=== PATIENT | male | born 1965 | race Caucasian/White ===

== ENCOUNTER 2016-11-25 16:13 | Emergency (ER) | payer OTHER, MEDICARE ==
[~2016-11-25] VITALS: Ht 165.1 cm; Wt 81.6 kg
[~2016-11-25 16:13] MED LIST: LAMISIL AT30 GM PO
[2016-11-25] MEDS ORDERED: VITAMIN D250000 UNIT PO (17:13)
[2016-11-25] MEDS ORDERED: VITAMIN B-121000 MC3 PO (17:14)
[2016-11-25] MEDS ORDERED: LISINOPRIL2.5 M1 PO (17:14)
[2016-11-25] MEDS ORDERED: BENZTROPINE ME0.5 M1 PO (17:15)
[2016-11-25] MEDS ORDERED: ZIPRASIDONE HCL80 M1 PO (17:15)
[2016-11-25] MEDS ORDERED: METFORMIN HCL500 M4 PO (17:17)
[2016-11-25] MEDS ORDERED: HALOPERIDOL5 MG PO (17:18)
[2016-11-25] MEDS ORDERED: PAIN & FEVER325 M1 PO (17:23)
[2016-11-25] MEDS ORDERED: ADULT WAL-100 MG/5 M PO (17:23)
[2016-11-25] MEDS ORDERED: BACITRACIN28.4 GM TOP (17:24)
--- NOTE | 2016-11-25 17:54 | CT SCAN REPORT ---
EXAMINATION: CT HEAD WITHOUT CONTRAST CLINICAL INFORMATION: Status post unwitnessed fall. Scalp laceration. COMPARISON: None TECHNIQUE: Contiguous axial imaging was performed from the skull base to vertex without intravenous administration of contrast. DLP: 945 mGy-cm FINDINGS: There is no evidence of acute intracranial hemorrhage or territorial infarction. No abnormal mass effect or midline shift is seen. Thornton to white matter differentiation is well preserved. No extra-axial fluid collections are identified. The ventricles are normal in size. There is no abnormal attenuation within the brain parenchyma. A small laceration with skin clips and scalp hematoma in the left posterior parietal region is identified. The osseous structures appear unremarkable. Frontal sinuses are aplastic. The mastoid air cells and other visualized portions of the paranasal sinuses are well developed and patent. IMPRESSION: No acute intracranial pathology.
--- NOTE | 2016-11-25 17:59 | CT SCAN REPORT ---
EXAMINATION: CT CERVICAL SPINE WITHOUT CONTRAST CLINICAL INFORMATION: Scalp laceration status post unwitnessed fall. COMPARISON: None TECHNIQUE: Routine multidetector CT imaging through the cervical spine was performed. Sagittal and coronal reconstructed imaging is also provided. The inferior most aspect of the anterior T7 vertebra is not completely included. DLP: 945 mGy-cm FINDINGS: CERVICAL SPINE: There is anatomic alignment of the vertebral bodies and posterior elements. There is no acute fracture and there is no acute subluxation. The craniocervical and atlantoaxial articulations are normal. No significant appearing degenerative changes are seen. There is no high-grade canal or foraminal stenosis. There is mild loss of disc space height most notably at the C3/C4 level. There is no prevertebral soft tissue swelling. No significant soft tissue abnormality within the neck. Lung apices are not included. IMPRESSION: No acute osseous injury.
[2016-11-25 18:03] VITALS: BP 125/82
--- NOTE | 2016-11-25 18:22 | ED MVC/FALL/TRAUMA COMPLAINT ---
History of Present Illness General Chief Complaint: Fall Stated Complaint: FELL AND HIT HEAD Source: patient Exam Limitations: poor historian Vital Signs & Intake/Output Vital Signs & Intake/Output ED Intake and Output 11/26 0000 11/25 1200 Intake Total Output Total Balance Patient 180 lb Weight Allergies Coded Allergies: NO KNOWN ALLERGIES (07/03/12) Reconcile Medications Acetaminophen (Pain & Fever) 325 MG TABLET 2 TAB PO Q4H PRN PAIN/FEVER>100 ( Reported) Bacitracin 500 UNIT/GRAM OINT...G. 1 GWEN TOP BID PRN MINOR CUTS/ABRASIONS ( Reported) apply to affected area(s) Benztropine Mesylate 0.5 MG TABLET 1 TAB PO BID MENTAL HEALTH (Reported) Cyanocobalamin (Vitamin B-12) 1,000 MCG TABLET 1 TAB PO 2XW SUPPLEMENT ( Reported) Ergocalciferol (Vitamin D2) (Vitamin D2) 50,000 UNIT CAPSULE 1 CAP PO Q2W SUPPLEMENT (Reported) Guaifenesin (Adult Wal-Tussin) 100 MG/5 ML LIQUID 10 ML PO AD PRN COUGH ( Reported) Haloperidol 5 MG TABLET 1 TAB PO BID MENTAL HEALTH (Reported) Lisinopril 2.5 MG TABLET 1 TAB PO DAILY BP (Reported) Metformin HCl (Metformin HCl ER) 500 MG TAB.ER.24H 1 TAB PO BID DM (Reported) Ziprasidone HCl 80 MG CAPSULE 1 CAP PO BID MENTAL HEALTH (Reported) with food Triage Note: PT BIBA FROM CORRECTION S/P FALL AT AROUND 3:30PM TODAY. PER EMS DENIES LOW. PT HAS CUT ON LEFT SIDE OF THE HEAD. BLEEDING CONTROLLED. SLIGHT SWOLLEN ON CUT AREA. PT DENIES PAIN. PT HAS HISTORY OF MR. NO S/S OF PAIN NOTED. NO S/S CARDIOPULMONARY DISTRESS. ARRIVES ALERT AND ORIENTED TO BASE LINE. AWAITING EVAL. Triage Nurses Notes Reviewed? yes Onset: Abrupt Duration: hour(s): Timing: single episode today Severity: moderate Injuries/Fall Location: head, upper extremity Method of Injury: fall Loss of Consciousness: no loss of consciousness HPI: 51-year-old male with history of MR presents to emergency department room s/p fall at nursing home today. Per aid from nursing home this was a witnessed fall by a nurse. Nurse reports patient accidentally hit forehead against wall then fell onto the floor hitting the left side of his head, appearing to be a mechanical fall. Patient did not lose consciousness. The patient reports that he has some pain in his head. The date of last tetanus vaccine is unknown. The patient denies nausea, vomiting, visual changes, abdominal pain, back pain, neck pain, ear pain. (ANTOINE MCCULLOUGH PA-C) Past History Travel History Traveled to [place] past 21 day No Medical History Any Pertinent Medical History? see below for history Neurological: MR Cardiovascular: CHF Respiratory: asthma Endocrine: diabetes Surgical History Surgical History: none Psychosocial History Who do you live with Brother What is your primary language Cuban Tobacco Use: Cognitive Impairment Daily Tobacco Use Amount/Type: =< 4 Cigarettes daily Family History Hx Contributory? No (ANTOINE MCCULLOUGH PA-C) Review of Systems Review of Systems Constitutional: Reports: no symptoms. Eyes: Reports: no symptoms. Ears, Nose, Throat, Mouth: Reports: no symptoms. Respiratory: Reports: no symptoms. Cardiovascular: Reports: no symptoms. Gastrointestinal/Abdominal: Reports: no symptoms. Genitourinary: Reports: no symptoms. Musculoskeletal: Reports: see HPI. Skin: Reports: no symptoms. Neurological/Psychological: Reports: no symptoms. All Other Systems: Reviewed and Negative (ANTOINE MCCULLOUGH PA-C) Physical Exam Physical Exam General Appearance: well developed/nourished, no apparent distress, alert, awake Head: 1.5cm laceration to right scalp, actively bleeding Eyes: Bilateral: normal appearance, PERRL, EOMI. Neck: normal inspection, supple, full range of motion, no midline tenderness Respiratory: normal breath sounds, chest non-tender, no respiratory distress, lungs clear Cardiovascular: regular rate/rhythm Gastrointestinal: normal bowel sounds, soft, non-tender Back: normal inspection, normal range of motion, no vertebral tenderness Extremities: normal range of motion Neurologic/Psych: awake, alert, manager film II-XII nml as tested Skin: 1.5cm superficial laceration to right scalp, actively bleeding Core Measures ACS in differential dx? No Severe Sepsis Present: No Septic Shock Present: No (ANTOINE MCCULLOUGH PA-C) Progress Differential Diagnosis: abd injury, C/T/L spine injury, ICH, fracture, laceration Plan of Care: Current Medications Sig/Flavio Start time Last Medication Dose Stop Time Status Admin Tetanus/Diphtheria 0.5 ML ONCE ONE 11/25 1899 UNVr Toxoids Adsorbed 11/25 1900 (Decavac) The patient was discussed with Dr. Crystal. Will obtain head CT to r/o bleeding given fall with history of MR. Patient is able to cooperate with neuro exam, he is neurologically intact, no focal neurologic deficit appreciated. CT scan shows no acute bleeding intracranially. Laceration closed with 2 christiano, bacitracin applied topically. Tetanus status updated today. Patient and aid from nursing home were educated on signs and symptoms of infection. The patient will return in 7 days for staple removal or follow-up with primary care doctor. They may apply bacitracin at nursing home for the next 3 days. Patient will Return with any worsening symptoms or signs. The patient is in no acute distress, he is ambulating without assistance, the vital signs are stable. Patient is in agreement with plan of care. (JAMEL BURNS,ANTOINE MADERA) Diagnostic Imaging: Viewed by Me: CT Scan. Discussed w/RAD: CT Scan. Radiology Impression: PATIENT: MARTHA OSORIO PRESENT AGE: 51 PATIENT ACCOUNT NO: [id number] : 64 LOCATION: [facility] ORDERING PHYSICIAN: ANTOINE MCCULLOUGH PA-C SERVICE DATE: 11/25/16 EXAM TYPE: CAT - CT HEAD WO IV CONTRAST EXAMINATION: CT HEAD WITHOUT CONTRAST CLINICAL INFORMATION: Status post unwitnessed fall. Scalp laceration. COMPARISON: None TECHNIQUE: Contiguous axial imaging was performed from the skull base to vertex without intravenous administration of contrast. DLP: 945 mGy-cm FINDINGS: There is no evidence of acute intracranial hemorrhage or territorial infarction. No abnormal mass effect or midline shift is seen. Thornton to white matter differentiation is well preserved. No extra-axial fluid collections are identified. The ventricles are normal in size. There is no abnormal attenuation within the brain parenchyma. A small laceration with skin clips and scalp hematoma in the left posterior parietal region is identified. The osseous structures appear unremarkable. Frontal sinuses are aplastic. The mastoid air cells and other visualized portions of the paranasal sinuses are well developed and patent. IMPRESSION: No acute intracranial pathology. DICTATED BY: KATIUSKA COLBY MD DATE/TIME DICTATED:11/25/161746 DYEING MACHINE TENDER:SERA DATE/ TIME TRANSCRIBED:11/25/161746 CONFIDENTIAL, DO NOT COPY WITHOUT APPROPRIATE AUTHORIZATION. <Electronically signed in Other Vendor System> SIGNED BY: KATIUSKA COLBY MD 11/25/161753, PATIENT: MARTHA OSORIO PRESENT AGE: 51 PATIENT ACCOUNT NO: [id number] : 64 LOCATION: [facility] ORDERING PHYSICIAN: ANTOINE MCCULLOUGH PA-C SERVICE DATE: 11/25/16 EXAM TYPE: CAT - CT CERV SPINE WO IV CONTRAST EXAMINATION: CT CERVICAL SPINE WITHOUT CONTRAST CLINICAL INFORMATION: Scalp laceration status post unwitnessed fall. COMPARISON: None TECHNIQUE: Routine multidetector CT imaging through the cervical spine was performed. Sagittal and coronal reconstructed imaging is also provided. The inferior most aspect of the anterior T7 vertebra is not completely included. DLP: 945 mGy-cm FINDINGS: CERVICAL SPINE: There is anatomic alignment of the vertebral bodies and posterior elements. There is no acute fracture and there is no acute subluxation. The craniocervical and atlantoaxial articulations are normal. No significant appearing degenerative changes are seen. There is no high-grade canal or foraminal stenosis. There is mild loss of disc space height most notably at the C3/C4 level. There is no prevertebral soft tissue swelling. No significant soft tissue abnormality within the neck. Lung apices are not included. IMPRESSION: No acute osseous injury. DICTATED BY: KATIUSKA COLBY MD DATE/TIME DICTATED:11/25/161750 DYEING MACHINE TENDER:SERA DATE/TIME TRANSCRIBED:11/25/161750 CONFIDENTIAL, DO NOT COPY WITHOUT APPROPRIATE AUTHORIZATION. <Electronically signed in Other Vendor System> SIGNED BY: KATIUSKA COLBY MD 11/25/161758 (JAMEL BURNS,ANTOINE MADERA) Departure Departure Disposition: HOME OR SELF CARE Condition: Stable Clinical Impression Primary Impression: Fall Secondary Impressions: Laceration Referrals: POOJA BORGES MD (PCP/Family) Additional Instructions: The patient was seen and evaluated in the emergency room for a fall. The patient was complaining of pain and has had after the fall. He also had a laceration to his left scalp. This laceration was closed with 2 christiano. It was recommended to apply bacitracin or Neosporin topically for the next 3 days. The patient christiano should be removed in 7 days here in the emergency room or at primary care physician's office. A Head and neck CT scan was done to assess for bleeding internally, the results of the CT scan was negative, within normal limits. The patient may take Tylenol or Motrin as prescribed as needed for pain. Return with any worsening symptoms or concerns. Please note that there might be incidental findings in your evaluation that are unrelated to the current emergency department visit. Please notify your primary care doctor about this emergency department visit in order to obtain and review all of the testing performed so that these incidental findings can be monitored as needed. If you had an x-ray performed, please understand that some fractures may not be seen on the initial set of x-rays. If your symptoms persist you might need a repeat set of x-rays to check for such a fracture. If you had a laceration evaluated, please understand that foreign bodies such as glass or wood may not be visible to the naked eye or on plain x-rays. If the wound becomes red, swollen, increasingly more painful or if there is any drainage from the wound, please have it reevaluated by a physician for the possibility of a retained foreign body. If you're unable to follow up as outlined in the discharge instructions please return to the emergency department. Thank you for choosing the [facility] Emergency Department for your care. It was a pleasure to serve you today. Departure Forms: Customer Survey General Discharge Information (JAMEL BURNS,ANTOINE MADERA) PA/ORNAMENTAL METAL ERECTOR APPRENTICE Co-Sign Statement Statement: ED Attending supervision documentation- [] I saw and evaluated the patient. I have also reviewed all the pertinent lab results and diagnostic results. I agree with the findings and the plan of care as documented in the PA's/ORNAMENTAL METAL ERECTOR APPRENTICE's documentation. [X] I have reviewed the ED Record and agree with the PA's/ORNAMENTAL METAL ERECTOR APPRENTICE's documentation. [] Additions or exceptions (if any) to the PAs/ORNAMENTAL METAL ERECTOR APPRENTICE's note and plan are summarized below: [] (STU BROWN,SEBAS) Procedures Laceration/Wound Repair Laceration/Wound Repair: Wound Location: head Wound's Depth, Shape: superficial Wound Length (cm): 1.5 Wound Explored: clean Irrigated w/ Saline (ccs): 100 Betadine Prep? Yes Anesthesia: LET topical Wound Repaired With: christiano Date of Last Tetanus: 11/25/16 Tetanus Status: up to date Progress: Procedure performed by HÉCTOR student under my direct supervision. LET topical lidocaine applied topically. Patient tolerated procedure well. (JAMEL BURNS,ANTOINE MADERA)
== END 2016-11-25 19:11 ==
LOC: ERH 16:13
DX: S01.01XA Laceration without foreign body of scalp, initial encounter (principal); W18.09XA Striking against other object with subsequent fall, initial encounter; Y93.9 Activity, unspecified; Y92.129 Unspecified place in nursing home as the place of occurrence of the external cause
CPT/HCPCS: 90471; 90714

== ENCOUNTER 2016-11-26 08:55 | Inpatient (IN) | payer OTHER, MEDICARE ==
[~2016-11-26] VITALS: Ht 167.6 cm; Wt 72.6 kg
[~2016-11-26 08:55] MED LIST changes: +ADULT WAL-100 MG/5 M PO; +BACITRACIN28.4 GM TOP; +BENZTROPINE ME0.5 M1 PO; +HALOPERIDOL5 MG PO; +LISINOPRIL2.5 M1 PO; +METFORMIN HCL500 M4 PO; +PAIN & FEVER325 M1 PO; +VITAMIN B-121000 MC3 PO; +VITAMIN D250000 UNIT PO; +ZIPRASIDONE HCL80 M1 PO
--- NOTE | 2016-11-26 08:59 | ED GENERAL ADULT ---
History of Present Illness General Chief Complaint: Foot or Ankle Injury Stated Complaint: BIBA Source: patient, old records, EMS Exam Limitations: MENTAL RETARDATION Vital Signs & Intake/Output Vital Signs & Intake/Output Vital Signs Date Time Temp Pulse Resp B/P B/P Pulse O2 O2 Flow FiO2 Mean Ox Delivery Rate 11/26 1728 97.5 87 18 120/76 98 Room Air 11/26 1635 96.1 94 20 134/84 91 Room Air 11/26 1348 96.9 94 18 119/76 98 Room Air 11/26 1200 96.0 96 18 146/67 100 Room Air 11/26 0942 91 11/26 0918 97 11/26 0909 96.7 104 18 101/67 98 Allergies Coded Allergies: NO KNOWN ALLERGIES (07/03/12) Reconcile Medications Acetaminophen (Pain & Fever) 325 MG TABLET 2 TAB PO Q4H PRN PAIN/FEVER>100 ( Reported) Bacitracin 500 UNIT/GRAM OINT...G. 1 GWEN TOP BID PRN MINOR CUTS/ABRASIONS ( Reported) apply to affected area(s) Benztropine Mesylate 0.5 MG TABLET 1 TAB PO BID MENTAL HEALTH (Reported) Cyanocobalamin (Vitamin B-12) 1,000 MCG TABLET 1 TAB PO 2XW SUPPLEMENT ( Reported) Ergocalciferol (Vitamin D2) (Vitamin D2) 50,000 UNIT CAPSULE 1 CAP PO Q2W SUPPLEMENT (Reported) Guaifenesin (Adult Wal-Tussin) 100 MG/5 ML LIQUID 10 ML PO AD PRN COUGH ( Reported) Haloperidol 5 MG TABLET 1 TAB PO BID MENTAL HEALTH (Reported) Lisinopril 2.5 MG TABLET 1 TAB PO DAILY BP (Reported) Metformin HCl (Metformin HCl ER) 500 MG TAB.ER.24H 1 TAB PO BID DM (Reported) Ziprasidone HCl 80 MG CAPSULE 1 CAP PO BID MENTAL HEALTH (Reported) with food Triage Nurses Notes Reviewed? yes Unable To Obtain Hx Due To: MENTAL RETARDATION Onset: Abrupt Duration: hour(s): (2), constant, continues in ED Timing: single episode today Injury Environment: home Severity: mild, moderate No Modifying Factors: none HPI: 51-year-old male with a past medical history of mental retardation, asthma and xwd-jhkpybx-qhrhkekus diabetes [facility] for evaluation of tachycardia. [facility] a [facility] and has his vitals taken every morning. There is a policy in the [facility] that since the patient 's heart rate is above 120 needs to have an emergency department evaluation. Patient's pulse was 126 this morning. Patient currently does not have any complaints and denies any pain. His mental status is at baseline. He has been eating and drinking normally and behaving normally. He has not taken any new medications. He was seen in the emergency department last night after a fall. He had a CT scan of his head that was within normal limits. He is able to walk normally. No chest pain no shortness of breath no lower extremity edema no abdominal pain no other associated symptoms. (ALEXANDRIA STEPHENS PA-C) Past History Medical History Any Pertinent Medical History? see below for history Neurological: MR Cardiovascular: CHF Respiratory: asthma Endocrine: diabetes Tetanus Vaccine: 11/25/16 Surgical History Surgical History: none Psychosocial History Who do you live with Brother What is your primary language Urdu Family History Hx Contributory? No (ALEXANDRIA STEPHENS PA-C) Review of Systems Review of Systems Constitutional: Reports: no symptoms. EENTM: Reports: no symptoms. Respiratory: Reports: no symptoms. Cardiovascular: Reports: no symptoms. GI: Reports: no symptoms. Genitourinary: Reports: no symptoms. Musculoskeletal: Reports: no symptoms. Skin: Reports: no symptoms. Neurological/Psychological: Reports: no symptoms. Hematologic/Endocrine: Reports: no symptoms. Immunologic/Allergic: Reports: no symptoms. All Other Systems: Reviewed and Negative (ALEXANDRIA STEPHENS PA-C) Physical Exam Physical Exam General Appearance: well developed/nourished, no apparent distress, alert, awake , comfortable Comments: General: Hemodynamically stable. Afebrile. Well-developed well-nourished person in no acute distress. Head: Atraumatic, normocephalic Eyes: EOMI bilaterally, PERRLA, conjunctiva are not injected, no discharge, no nystagmus, fundus grossly normal bilaterally Nose: Atraumatic, no rhinorrhea, mucosa is not erythematous, no epistaxis. Sinuses are non-tender Ears: TM pearly noel color bilaterally, external canal is clear, no discharge, hearing is normal Mouth: Appropriate dentition, no gingival bleeding, moist mucus membranes, no oral lesions, tonsils not erythematous or enlarged and free of exudate. Uvula rises midline. Neck: Supple, full active ROM, no lymphadenopathy, no midline tenderness to palpation, no thyromegaly, no tracheal deviation. Back: Non-tender, full active ROM, no scoliosis, no CVA tenderness Cardiovascular: regular rate and rhythm, no murmurs, rubs, or gallops. No JVD Respiratory: Chest is nontender. Regular respiratory rate and effort. No accessory muscle use. Lungs clear to auscultation bilaterally. Abdomen: Soft, non-tender, non-distended, no organomegaly. No rebound tenderness or guarding. Normoactive bowel sounds. Extremities: No edema. No gross deformities. No joint swelling. No calf swelling or tenderness. Full active and passive ROM. Strength 5/5 in upper and lower extremities. Peripheral pulses 2+ bilaterally, Patellar DTR 2+ Neuro: mENTAL STATUS IS AT BASELINE. Motor and sensory function is intact. Appropriate gait. Cerebellar function intact. Skin: Warm and dry. Appropriate turgor. No lesions or bruising. No appreciable rash on exposed skin. Core Measures ACS in differential dx? No CVA/TIA Diagnosis: No Severe Sepsis Present: No Septic Shock Present: No (KAT BURNS,ALEXANDRIA) Progress Differential Diagnoses I considered the following diagnoses in my evaluation of the patient: [CHF, anxiety, hypotension, hypovolemia, electrolyte abnormality, acute coronary syndrome,] Plan of Care: Orders Procedure Date/time Status Consistent Carbohydrate 2 11/26 D Active TROPONIN LEVEL 11/26 2100 Active EKG 11/26 2100 Active TROPONIN LEVEL 11/26 1500 Complete EKG 11/26 1500 Active FingerStick- Glucose 11/26 1436 Active ECHOCARDIOGRAM 11/26 1436 Active Pathway - chart 11/26 1332 Active House Staff 11/26 1332 Active Patient Data 11/26 1332 Active Code Status 11/26 1332 Active ED Holding Orders 11/26 1314 Active Admit to inpatient 11/26 1314 Active Patient Data 11/26 1314 Active Vital Signs 11/26 1314 Active Code Status 11/26 1314 Complete Add-on Test (ER Only) 11/26 1256 Active PARTIAL THROMBOPLASTIN TIME 11/26 1029 Complete PROTHROMBIN TIME 11/26 1029 Complete D-DIMER 11/26 0930 Complete Add-on Test (ER Only) 11/26 0917 Active Intake & Output 11/26 0908 Active Telemetry/Loss Control Representative 11/26 0859 Active TSH REFLEX 11/26 0859 Complete TROPONIN LEVEL 11/26 0859 Complete MAGNESIUM 11/26 0859 Complete COMPREHENSIVE METABOLIC PANEL 11/26 0859 Complete CBC WITHOUT DIFFERENTIAL 11/26 0859 Complete B-TYPE NATRIURETIC PEP (BNP) 11/26 0859 Complete EKG 11/26 0859 Active VTE Mechanical Prophylaxis 11/26 UNK Active Telemetry/Loss Control Representative 11/26 UNK Active Current Medications Sig/Flavio Start time Last Medication Dose Stop Time Status Admin Lisinopril 2.5 MG DAILY 11/27 1000 AC (Prinivil) Benztropine Mesylate 0.5 MG BID 11/26 2200 AC (Cogentin 0.5 MG Tab) Ziprasidone 80 MG BID 11/26 2200 AC (Geodon 80 MG Cap) Insulin Aspart 0 TIDAC 11/26 1700 AC (NovoLOG) Terbinafine HCl 1 GWEN TID 11/26 1630 AC (Lamisil) Haloperidol 5 MG TID 11/26 1600 AC (Haldol) Guaifenesin 10 ML Q6P PRN 11/26 1400 AC (Robitussin) Acetaminophen 325 MG Q6P PRN 11/26 1345 AC (Tylenol) Acetaminophen 1,000 MG Q6P PRN 11/26 1345 AC (Ofirmev) Morphine Sulfate 1 MG Q4P PRN 11/26 1345 AC (Morphine) Heparin Sodium 25,000 UNIT Q24H 11/26 1315 AC 11/26 (Porcine) 1352 (Heparin) Sodium Chloride 500 ML Midazolam HCl 5 MG ONCE ONE 11/26 1130 CAN (Versed) 11/26 1131 Laboratory Tests 11/26/16 1630: Troponin I < 0.01 11/26/16 1029: PT 11.4, INR 1.09, APTT 31, D-Dimer High Sensitivty 410 H 11/26/16 0904: Anion Gap 9, Estimated GFR > 60, BUN/Creatinine Ratio 30.0 H, Glucose 154 H, Calcium 9.2, Magnesium 1.8, Total Bilirubin 0.6, AST 19, ALT 29, Alkaline Phosphatase 65, Troponin I < 0.01, Jcp-G-Qcidksvrtdc Pept 81.3, Total Protein 6.4, Albumin 3.8, Globulin 2.6, Albumin/Globulin Ratio 1.5, TSH &T3 &Free T4 Intrp 2.730, CBC w Diff NO MAN DIFF REQ, RBC 4.05 L, MCV 92.7, MCH 31.2 H, RDW 12.9, MPV 7.4, Gran % 73.4, Lymphocytes % 17.7 L, Monocytes % 8.2, Eosinophils % 0.4, Basophils % 0.3, Absolute Granulocytes 4.3, Absolute Lymphocytes 1.0 L, Absolute Monocytes 0.5, Absolute Eosinophils 0, Absolute Basophils 0, PUBS MCHC 33.7 11/26/16 0901: Wzl-N-Vlbyjgpaqco Pept Cancelled Patient seen and evaluated. He is currently tachycardic to the low 100s. His mental status appears at baseline. He does not offer any complaints. Vital signs otherwise within normal limits. Patient was given a liter normal saline and basic blood work and EKG were obtained. A review of patient's previous vital signs show that he frequently has a heart rate in the 1-teens. 11:20 AM: Patient's d-dimer is elevated to 400. CTA ordered. Patient has a history of MR and is having difficulty laying still. Patient will have Versed ordered in case he needs to be sedated for the CT. 12:30 PM: Patient was able to complete the CTA without administration of Versed. Waiting for radiologist to review the results. 1 PM: Radiologist called from [place] and CTA of the chest does show a pulmonary embolism. Reviewed results with patient and caregiver. PT/INR and PTT ordered. Rectal exam negative for blood. Patient will be heparinized. Patient also requires admission to the hospital. Dr. Hancock paged. Dr Sawant spoke with Dr Severino who is covering for Santi. [facility], iv anticoagulation, hypercoag work up and echo. Reviewed plan with pt and caregiver. They agree with the plan. (KAT BURNS,ALEXANDRIA) Diagnostic Imaging: Viewed by Me: CT Scan. Discussed w/RAD: CT Scan. Initial ED EKG: no ST T wave changes, SINUS TACH RATE 104 Comments: PATIENT: MARTHA OSORIO PRESENT AGE: 51 PATIENT ACCOUNT NO: [id number] : 63 LOCATION: [facility] ORDERING PHYSICIAN: ALEXANDRIA STEPHENS PA-C SERVICE DATE: 11/26/16 EXAM TYPE: CAT - CTA CHEST-PULMONARY EMBOLISM EXAMINATION: CT ANGIOGRAM OF THE CHEST WITH AND WITHOUT CONTRAST (CT PULMONARY ANGIOGRAM FOR PE) CLINICAL INFORMATION: Tachycardia. Elevated d-dimer. COMPARISON: Chest x-ray of 07/03/2015, 06/05/2009, 11/14/2008. TECHNIQUE: Prior to contrast administration, noncontrast localization images were obtained. Subsequently, multidetector volumetric imaging was performed from the thoracic inlet to below the diaphragms following the administration of 80 mL Optiray 320 intravenous contrast. No contrast reaction reported. Sagittal, coronal, and MIP oblique sagittal reformatted images were obtained on the CT workstation, uploaded to PACS, and reviewed. Total exam dose-length product 555.91 mGy-cm. FINDINGS: QUALITY OF STUDY/CONTRAST BOLUS: The enhancement of the pulmonary arterial tree is satisfactory. However, there are respiratory motion artifact somewhat limiting the evaluation. PULMONARY ARTERIES: There is a filling defect in the right lower lobe superior segmental branch (series 2 image 213/510) which is concerning for an isolated pulmonary embolism. THORACIC AORTA: No aneurysm or dissection. LUNG: Multiple respiratory motion artifacts limit evaluation. No focal consolidation, nodules or masses are noted. PLEURA: No pleural effusion or pneumothorax. MEDIASTINUM: Normal heart size. No pericardial effusion. No hilar or mediastinal lymphadenopathy. No evidence of septal bowing or right heart strain. Mild coronary calcifications. CHEST WALL/AXILLA: No axillary or internal mammary lymphadenopathy. OSSEOUS STRUCTURES: No acute or suspicious osseous abnormality. Mild degenerative changes in the lower thoracic spine. UPPER ABDOMEN: Hyperdense material is noted layering in the gallbladder, may represent a gallbladder sludge or vicarious excretion of contrast. There is mild fatty atrophy of the pancreas. No reflux of contrast into the hepatic veins to suggest elevated right heart pressures. IMPRESSION: 1. Multiple respiratory motion artifact somewhat limits evaluation. Isolated filling defect in the right lower lobe superior segment pulmonary arterial branch is concerning for pulmonary embolism. No acute intrathoracic abnormality noted otherwise. 2. Hyperdense sludge versus vicarious excretion of contrast in the gallbladder. This critical result was discussed with HÉCTOR Samaniego at 12:53 PM on 11/26/2016 and it was ascertained that the content and urgency of the report was understood at the time of direct communication. VTE: positive DICTATED BY: VIET BROWN,ANAL DATE/TIME DICTATED:11/26/161236 [facility] DATE/TIME TRANSCRIBED:11/26/161236 CONFIDENTIAL, DO NOT COPY WITHOUT APPROPRIATE AUTHORIZATION. <Electronically signed in Other Vendor System> SIGNED BY: VIET BROWN,ANAL 11/26/16 9316 (ALEXANDRIA STEPHENS PA-C) Departure Departure Condition: Stable Referrals: POOJA HANCOCK MD (PCP/Family) Departure Forms: Customer Survey General Discharge Information (ALEXANDRIA STEPHENS PA-C) Departure Disposition: STILL A PATIENT Clinical Impression Primary Impression: Pulmonary emboli Secondary Impressions: Tachycardia Admission Note Spoke With: MARIBELL RICHARDS MD Documentation of Exam: Documentation of any treatments & extenuating circumstances including Concerns Regarding Discharge (functional status, medication knowledge or non-compliance, living conditions, etc.) that warrant an admission rather than observation: [ TELE MONITORING, IV HEPARIN AND THEN CONVERT OVER TO ORAL AGENT] PA/TRANSIT MIXER DRIVER Co-Sign Statement Statement: ED Attending supervision documentation- [X] I saw and evaluated the patient. I have also reviewed all the pertinent lab results and diagnostic results. I agree with the findings and the plan of care as documented in the PA's/TRANSIT MIXER DRIVER's documentation. [X] I have reviewed the ED Record and agree with the PA's/TRANSIT MIXER DRIVER's documentation. [] Additions or exceptions (if any) to the PAs/TRANSIT MIXER DRIVER's note and plan are summarized below: [] (EBONY BROWN,SHAKILA Franco) Critical Care Note Critical Care Note Critical Care Time: non-applicable (ALEXANDRIA STEPHENS PA-C)
--- NOTE | 2016-11-26 09:09 | NUR ---
BIBA FROM GROUP WITH C/C OF HEART RATE IN 150'S. PER EMS HEART ON ROUTE WAS 120'S. UPON ARRIVAL, PT ALERT AND ORIENTED X 1 WITH HISTORY OF MR TO BASELINE. PLACED ON HEART MONITOR. SINUS TACH 106. TEMPERATURE 96.7. PT WAS SEEN HERE YESTERDAY WITH C/C OF FALL AND HAD TWO RADHA ON LEFT SIDE OF THE HEAD. RADHA NOTED CLEAN, DRY AND INTACT. NO S/S OF INFECTION NOTED. PT EVALUATED BY HÉCTOR STEPHENS. EKG DONE AND SHOWED TO DR. BECK.
--- NOTE | 2016-11-26 09:12 | NUR ---
IV NS INFUSING ORDERED. LABS WERE SENT.
[2016-11-26 09:15] LABS: ABSOLUTE BASOPHIL COUNT 0 /CUMM (0.0-0.2); ABSOLUTE EOSINOPHIL COUNT 0 /CUMM (0.0-0.7); ABSOLUTE GRANULOCYTE CT 4.3 /CUMM (1.4-6.5); ABSOLUTE MONOCYTE COUNT 0.5 /CUMM (0.10-0.60); BASOPHIL % 0.3 % (0.0-2.0); EOSINOPHIL % 0.4 % (0-5); GRANULOCYTE % 73.4 % (42.2-75.2); HEMATOCRIT 37.6 % (42-52); MEAN CORPUSCULAR HGB 31.2 PG (27.0-31.0); MEAN CORPUSCULAR HGB CONC 33.7 G/DL (33.0-37.0); MEAN CORPUSCULAR VOLUME 92.7 FL (80.0-94.0); MEAN PLATELET VOLUME 7.4 FL (7.4-10.4); PLATELET COUNT 136 /CUMM (130-400); RBC DISTRIBUTION WIDTH 12.9 % (11.5-14.5); RED BLOOD CELL CT 4.05 /CUMM (4.70-6.10); WHITE BLOOD CELL COUNT 5.8 /CUMM (4.8-10.8)
--- NOTE | 2016-11-26 10:23 | NUR ---
PT AMBULTED TO AND FROM BATHROOM. PLACED BACK ON SEAM FELLER. HR 90s AT THIS TIME. NORMAL SALINE REMAINS INFUSING PER ORDER.
--- NOTE | 2016-11-26 10:31 | NUR ---
BLUE TOP DRAWN AND SENT TO LAB AT THIS TIME, PER LAB-NEW BLUE TOP NEEDED
--- NOTE | 2016-11-26 12:20 | NUR ---
TAKEN PT OVER TO CT SCAN VIA STRETCHER. PT TOLERATED VERY WELL DURING CT SCAN PROCEDURE WITH LOT OF COACHINGS. DIDNOT HAVE TO SEDATE THE PT. HEART RATE REMAINS IN 90'S AT THIS TIME.
--- NOTE | 2016-11-26 13:04 | NUR ---
ZACH [phone] NURSE FOR [facility]-WOULD LIKE TO BE UPDATED
--- NOTE | 2016-11-26 13:07 | NUR ---
PER N[facility]SE [facility], PT WAS ACCIDENTLY GIVEN HIS ROOMATES MEDICATIONS WEDNESDAY EVENING AT THE [facility] (LORAZEPAM 2MG, PRAVASTATIN 80MG, OXYBUTIN 5MG, FLOMAX 0.4MG, ARICEPT 10MG, ZYPREXA 10MG, RAMIPRIL 10MG) PA AWARE
[2016-11-26 13:09] LABS: PT 11.4 SEC (9.4-12.5); PTT 31 SEC (25-37)
--- NOTE | 2016-11-26 13:51 | NUR ---
PT HAS ROOM 182-1
--- NOTE | 2016-11-26 14:20 | CT SCAN REPORT ---
EXAMINATION: CT ANGIOGRAM OF THE CHEST WITH AND WITHOUT CONTRAST (CT PULMONARY ANGIOGRAM FOR PE) CLINICAL INFORMATION: Tachycardia. Elevated d-dimer. COMPARISON: Chest x-ray of 07/03/2015, 06/05/2009, 11/14/2008. TECHNIQUE: Prior to contrast administration, noncontrast localization images were obtained. Subsequently, multidetector volumetric imaging was performed from the thoracic inlet to below the diaphragms following the administration of 80 mL Optiray 320 intravenous contrast. No contrast reaction reported. Sagittal, coronal, and MIP oblique sagittal reformatted images were obtained on the CT workstation, uploaded to PACS, and reviewed. Total exam dose-length product 555.91 mGy-cm. FINDINGS: QUALITY OF STUDY/CONTRAST BOLUS: The enhancement of the pulmonary arterial tree is satisfactory. However, there are respiratory motion artifact somewhat limiting the evaluation. PULMONARY ARTERIES: There is a filling defect in the right lower lobe superior segmental branch (series 2 image 213/510) which is concerning for an isolated pulmonary embolism. THORACIC AORTA: No aneurysm or dissection. LUNG: Multiple respiratory motion artifacts limit evaluation. No focal consolidation, nodules or masses are noted. PLEURA: No pleural effusion or pneumothorax. MEDIASTINUM: Normal heart size. No pericardial effusion. No hilar or mediastinal lymphadenopathy. No evidence of septal bowing or right heart strain. Mild coronary calcifications. CHEST WALL/AXILLA: No axillary or internal mammary lymphadenopathy. OSSEOUS STRUCTURES: No acute or suspicious osseous abnormality. Mild degenerative changes in the lower thoracic spine. UPPER ABDOMEN: Hyperdense material is noted layering in the gallbladder, may represent a gallbladder sludge or vicarious excretion of contrast. There is mild fatty atrophy of the pancreas. No reflux of contrast into the hepatic veins to suggest elevated right heart pressures. IMPRESSION: 1. Multiple respiratory motion artifact somewhat limits evaluation. Isolated filling defect in the right lower lobe superior segment pulmonary arterial branch is concerning for pulmonary embolism. No acute intrathoracic abnormality noted otherwise. 2. Hyperdense sludge versus vicarious excretion of contrast in the gallbladder. This critical result was discussed with HÉCTOR Samaniego at 12:53 PM on 11/26/2016 and it was ascertained that the content and urgency of the report was understood at the time of direct communication. VTE: positive
--- NOTE | 2016-11-26 14:28 | NUR ---
REPORT CALLED TO RUY MAI.
--- NOTE | 2016-11-26 14:32 | History & Physical ---
JULIANN KELLEY 11/26/16 9829: General Information and HPI MD Statement: I have seen and personally examined MARTHA OSORIO and documented this H&P. The patient is a 51 year old M who presented with a patient stated chief complaint of [pulmonary embolism]. Source of Information: old records, executive office manager Exam Limitations: clinical condition, poor historian History of Present Illness: Patient is a 51-year-old man with past medical history of mental retardation residing in a [facility] in [place], non-insulin dependent diabetes, asthma was brought into the ED this morning ambulance from his [facility] for the evaluation of tachycardia. Patient has baseline mental retardation and therefore a poor historian. Most of the history is obtained from the executive office manager of his [facility] [place]. She states that the patient was found to have a rapid heart rate of 120s this morning when his vitals were done. He denied any chest pain, shortness of breath, palpitations, nausea, vomiting, abdominal pain, dizziness, urinary or bowel symptoms. Patient appeared to be at his baseline and has been eating and drinking well at the facility. He had a mechanical fall last night when he hit a shelf on the wall and fell down on the ground hitting his head. There was no loss of consciousness, seizure-like activity, post-episode confusion or altered mental status. He was brought to the ER for evaluation. CT head was negative for any acute pathology. He did have laceration injury on his head secondary to the fall and received 2 christiano in the ED on the left side of the head. He also had a limp in his left leg secondary to the fall however no focal neurological deficits was noted by the facility members. Today, vitals in the ED : Temperature 96.7, pulse 104, respiration 18, blood pressure 101/67, saturating 98% on room air. Labs were significant for H&H of 12.7/ 37.6, negative troponins, elevated proBNP of 410. EKG shows sinus tachycardia with a heart rate of 104, QTC 453, no ST-T wave changes, no signs of right heart strain. Last echo was 2007 which showed global hypokinesia with EF of 30-35%, moderate mitral insufficiency, right heart pressure of 50mm hg Chest CTA revealed pulmonary embolism and patient was started on a heparin drip. He received a dose of Versed IV prior to the test. He was also bolused 1 L of normal saline in the ED. Allergies/Medications Allergies: Coded Allergies: NO KNOWN ALLERGIES (07/03/12) Home Med list Acetaminophen (Pain & Fever) 325 MG TABLET 2 TAB PO Q4H PRN PAIN/FEVER>100 ( Reported) Bacitracin 500 UNIT/GRAM OINT...G. 1 GWEN TOP BID PRN MINOR CUTS/ABRASIONS ( Reported) apply to affected area(s) Benztropine Mesylate 0.5 MG TABLET 1 TAB PO BID MENTAL HEALTH (Reported) Cyanocobalamin (Vitamin B-12) 1,000 MCG TABLET 1 TAB PO 2XW SUPPLEMENT ( Reported) Ergocalciferol (Vitamin D2) (Vitamin D2) 50,000 UNIT CAPSULE 1 CAP PO Q2W SUPPLEMENT (Reported) Guaifenesin (Adult Wal-Tussin) 100 MG/5 ML LIQUID 10 ML PO AD PRN COUGH ( Reported) Haloperidol 5 MG TABLET 1 TAB PO BID MENTAL HEALTH (Reported) Lisinopril 2.5 MG TABLET 1 TAB PO DAILY BP (Reported) Metformin HCl (Metformin HCl ER) 500 MG TAB.ER.24H 1 TAB PO BID DM (Reported) Ziprasidone HCl 80 MG CAPSULE 1 CAP PO BID MENTAL HEALTH (Reported) with food Past History Travel History Traveled to [place] past 21 day No Medical History Neurological: MR Cardiovascular: CHF Respiratory: asthma Endocrine: diabetes Tetanus Vaccine: 11/25/16 Surgical History Surgical History: none Review of Systems Review of Systems Constitutional: Reports: no symptoms. EENTM: Reports: no symptoms. Cardiovascular: Reports: no symptoms. Respiratory: Reports: no symptoms. GI: Reports: no symptoms. Genitourinary: Reports: no symptoms. Musculoskeletal: Reports: no symptoms. Skin: Reports: no symptoms. Exam & Diagnostic Data Last 24 Hrs of Vital Signs/I&O Vital Signs Date Time Temp Pulse Resp B/P B/P Pulse O2 O2 Flow FiO2 Mean Ox Delivery Rate 11/26 1348 96.9 94 18 119/76 98 Room Air 11/26 1200 96.0 96 18 146/67 100 Room Air 11/26 0942 91 11/26 0918 97 11/26 0909 96.7 104 18 101/67 98 Intake & Output 11/26 1600 11/26 0800 11/26 0000 Intake Total 1000 Output Total Balance 1000 Intake, IV 1000 Patient 72.575 kg Weight Weight Reported by Patient Measurement Method Physical Exam General Appearance Alert, Cooperative, No Acute Distress, not oriented to time, place, person Skin No Rashes, No Breakdown, 2 christiano noted on the left side of the head Skin Temp/Moisture Exam: Warm/Dry Sepsis Skin Exam (color): Normal for Ethnicity HEENT Atraumatic, PERRLA, EOMI, mucous membranes dry Neck Supple, No JVD Lymphatic Cervical nl Cardiovascular Regular Rate, Normal S1, Normal S2, 2/6 systolic murmur Lungs Clear to Auscultation, Normal Air Movement Abdomen Normal Bowel Sounds, Soft, No Tenderness Neurological Normal Tone, Reflexes 2+, difficult exam due to mental retardation, 4/5 all extremities at baseline Extremities No Clubbing, No Cyanosis, No Edema, Normal Pulses Vascular Normal Pulses Last 24 Hrs of Labs/Kiet: Laboratory Tests 11/26/16 1029: PT 11.4, INR 1.09, APTT 31, D-Dimer High Sensitivty 410 H 11/26/16 0904: Anion Gap 9, Estimated GFR > 60, BUN/Creatinine Ratio 30.0 H, Glucose 154 H, Calcium 9.2, Magnesium 1.8, Total Bilirubin 0.6, AST 19, ALT 29, Alkaline Phosphatase 65, Troponin I < 0.01, Hdl-D-Dwrvfvpzped Pept 81.3, Total Protein 6.4, Albumin 3.8, Globulin 2.6, Albumin/Globulin Ratio 1.5, TSH &T3 &Free T4 Intrp 2.730, CBC w Diff NO MAN DIFF REQ, RBC 4.05 L, MCV 92.7, MCH 31.2 H, RDW 12.9, MPV 7.4, Gran % 73.4, Lymphocytes % 17.7 L, Monocytes % 8.2, Eosinophils % 0.4, Basophils % 0.3, Absolute Granulocytes 4.3, Absolute Lymphocytes 1.0 L, Absolute Monocytes 0.5, Absolute Eosinophils 0, Absolute Basophils 0, PUBS MCHC 33.7 11/26/16 0901: Yuz-R-Fkiyhfeiums Pept Cancelled Assessment/Plan Assessment: Patient is a 51-year-old man with past medical history of mental retardation residing in a [facility] [place], non-insulin dependent diabetes, asthma was brought into the ED this morning ambulance from his [facility] for the evaluation of tachycardia. Today, vitals in the ED : Temperature 96.7, pulse 104, respiration 18, blood pressure 101/67, saturating 98% on room air. Labs were significant for H&H of 12.7/ 37.6, negative troponins, elevated proBNP of 410. EKG shows sinus tachycardia with a heart rate of 104, QTC 453, no ST-T wave changes, no signs of right heart strain. Last echo was 2007 which showed global hypokinesia with EF of 30-35%, moderate mitral insufficiency, right heart pressure of 50 Chest CTA revealed pulmonary embolism and patient was started on a heparin drip. He received a dose of Versed IV prior to the test. He was also bolused 1 L of normal saline in the ED. Last echo was 2007 which showed global hypokinesia with EF of 30-35%, moderate mitral insufficiency, right heart pressure of 50mm hg Assessment * Right lower lobe pulmonary embolism * Tachycardia * Mechanical fall with left leg limp * History of mitral regurgitation * Mental retardation * Diabetes mellitus * Asthma Plan * Admit to telemetry * Patient has been started on IV heparin. Will need to be transitioned related to oral anticoagulant * Will check lower leg dopplers * 3 sets of troponin and EKG to rule out ACS * Echocardiogram to evaluate the mitral regurgitation/ right heart strain. Last echo was 2007 which showed global hypokinesia with EF of 30-35%, moderate mitral insufficiency, right heart pressure of 50 * Mechanical fall yesterday/CT negative for acute pathology. No focal neurological deficit. * Continue psychiatric medications ziprasidone, Cogentin and haloperidol(3 times a day when necessary/caution QTC 453 * Continue lisinopril for hypertension * Pain control with morphine every 4 when necessary * 3 times a day Accu-Cheks, NovoLog sliding scale. * DVT prophylaxis IV heparin * Full code * A diabetic diet * Mild/moderate pain pathway As Ranked By This Provider Problem List: 1. Tachycardia 2. Pulmonary emboli 3. Laceration 4. Fall Core Measures/Miscellaneous Acute Coronary Syndrome ACS Diagnosis: No Cerebrovascular Accident CVA/TIA Diagnosis: No Congestive Heart Failure CHF Diagnosis: No VTE (View Protocol) VTE Risk Factors: Age > 40, Immobility, paresis [facility] prophylaxis d/t: No contraindications No VTE Pharm Prophylaxis d/t: No contraindications VTE Diagnosis: Yes VTE Type: Pulmonary Embolism VTE Confirmed by (Test): CT CHEST ANGIOGRAM Sepsis (View Protocol) Severe Sepsis Present: No Septic Shock Septic Shock Present: No Miscellaneous Documentation Attending Case Discussed With: MARIBELL RICHARDS MD Primary Care Physician: POOJA BORGES MD Patient sees these Specialists none Level of Patient Care: Telemetry MARIBELL RICHARDS MD 11/26/161933: Attending MD Review Statement Attending Statement Attending MD Statement: examined this patient, discuss w/resident/PA/SOFTWARE MANAGER, agreed w/resident/PA/SOFTWARE MANAGER, discussed with family, reviewed EMR data (avail), discussed with nursing, discussed with case mgmt, reviewed images, amended to note Attending Assessment/Plan: Pt with sig mr steele historian Seen and examined independently Agree with above history and physical exam Came in for tachycardia now resolved Found to have inidental segmental abnormality prob old pe not clinically sig Previous low ef with sig cardiomyopathy GB abnormality Sig MR On meds for htn, agitation and dm DM appears stable Recent mech fall History of asthma REC cont heparin and will decide on terminal make up operator anticoag ECHO cardio to see for low ef Follow ekg for qtc TEle monitoring Follow RV pressures Will follow
--- NOTE | 2016-11-26 15:00 | NUR ---
AWAITING SITTER TO GO WITH THE PT.
--- NOTE | 2016-11-26 15:27 | NUR ---
PT TAKEN TO ULTRA SOUND VIA STRETCHER
--- NOTE | 2016-11-26 16:31 | NUR ---
DENAE DRAWN AND SENT
--- NOTE | 2016-11-26 16:39 | ULTRASOUND REPORT ---
EXAMINATION: US TRIPLEX OF LOWER EXTREMITIES, BILATERAL CLINICAL INFORMATION: Pulmonary embolus. COMPARISON: CTA thorax of the same date. TECHNIQUE: Color-flow triplex imaging with spectral analysis and compression Doppler were performed on the lower extremities. FINDINGS: Respiratory variation, normal compression and augmented flow are noted throughout the lower extremities. The visualized common femoral vein, proximal greater saphenous vein, femoral vein, profunda femoral vein, popliteal vein and visualized mid calf venous segments show no evidence of deep venous thrombosis. There is a 2.6 x 0.8 x 1.7 cm right popliteal fossa Harley's cyst. There is a 1.0 x 0.4 x 0.7 cm left popliteal fossa Harley's cyst. IMPRESSION: 1. Normal triplex scan without evidence of deep venous thrombosis involving the bilateral lower extremities. 2. Bilateral Harley's cysts are seen, as detailed.
--- NOTE | 2016-11-26 16:41 | NUR ---
SKILLED NURSING PHONE NUMBERS: JORGE (SENIOR FINANCIAL CONSULTANT) [phone] FOREST (WORKER) [phone] EVELYN (SENIOR FINANCIAL CONSULTANT) [phone]
--- NOTE | 2016-11-26 16:45 | Cons- Cardiology ---
General Information and HPI Consulting Request Date of Consult: 11/26/16 Requested By: SUSIE BROWN,MARIBELL Ryan Reason for Consult: Pulmonary embolism Source of Information: patient, old records, friend Exam Limitations: poor historian History of Present Illness: Patient is a 51-year-old man with past medical history of mental retardation residing in a [facility] in [place], non-insulin dependent diabetes, asthma was brought into the ED this morning ambulance from his [facility] for the evaluation of tachycardia. Patient has baseline mental retardation and therefore a poor historian. Most of the history is obtained from the lottery office manager of his [facility] at [place]. She states that the patient was found to have a rapid heart rate of 120s this morning when his vitals were done. He denied any chest pain, shortness of breath, palpitations, nausea, vomiting, abdominal pain, dizziness, urinary or bowel symptoms. Patient appeared to be at his baseline and has been eating and drinking well at the facility. He had a mechanical fall last night when he hit a shelf on the wall and fell down on the ground hitting his head. There was no loss of consciousness, seizure-like activity, post-episode confusion or altered mental status. He was brought to the ER for evaluation. Allergies/Medications Allergies: Coded Allergies: NO KNOWN ALLERGIES (07/03/12) Home Med List: Acetaminophen (Pain & Fever) 325 MG TABLET 2 TAB PO Q4H PRN PAIN/FEVER>100 ( Reported) Bacitracin 500 UNIT/GRAM OINT...G. 1 GWEN TOP BID PRN MINOR CUTS/ABRASIONS ( Reported) apply to affected area(s) Benztropine Mesylate 0.5 MG TABLET 1 TAB PO BID MENTAL HEALTH (Reported) Cyanocobalamin (Vitamin B-12) 1,000 MCG TABLET 1 TAB PO 2XW SUPPLEMENT ( Reported) Ergocalciferol (Vitamin D2) (Vitamin D2) 50,000 UNIT CAPSULE 1 CAP PO Q2W SUPPLEMENT (Reported) Guaifenesin (Adult Wal-Tussin) 100 MG/5 ML LIQUID 10 ML PO AD PRN COUGH ( Reported) Haloperidol 5 MG TABLET 1 TAB PO BID MENTAL HEALTH (Reported) Lisinopril 2.5 MG TABLET 1 TAB PO DAILY BP (Reported) Metformin HCl (Metformin HCl ER) 500 MG TAB.ER.24H 1 TAB PO BID DM (Reported) Ziprasidone HCl 80 MG CAPSULE 1 CAP PO BID MENTAL HEALTH (Reported) with food Past History Travel History Traveled to [place] past 21 day No Medical History Neurological: MR Cardiovascular: CHF Respiratory: asthma Endocrine: diabetes Surgical History Surgical History: 1 Exam & Diagnostic Data Vital Signs and I&O Vital Signs Date Time Temp Pulse Resp B/P B/P Pulse O2 O2 Flow FiO2 Mean Ox Delivery Rate 11/26 1635 96.1 94 20 134/84 91 Room Air 11/26 1348 96.9 94 18 119/76 98 Room Air 11/26 1200 96.0 96 18 146/67 100 Room Air 11/26 0942 91 11/26 0918 97 11/26 0909 96.7 104 18 101/67 98 Intake & Output 11/26 1600 11/26 0800 11/26 0000 11/25 1600 11/25 0800 11/25 0000 Intake Total 1000 Output Total Balance 1000 Intake, IV 1000 Patient 160 lb Weight Weight Reported by Patient Measurement Method Physical Exam: General Appearance Alert, Cooperative, No Acute Distress, not oriented to time, place, person Skin Normal HEENT Atraumatic, PERRLA, EOMI, mucous membranes dry Neck Supple, No JVD, carotids normal Lymphatic Cervical nl Cardiovascular Regular Rate, Normal S1, Normal S2, 2/6 systolic murmur Lungs Clear to Auscultation, Normal Air Movement Abdomen Normal Bowel Sounds, Soft, No Tenderness Neurological Normal Tone, Reflexes 2+, difficult exam due to mental retardation, 4/5 all extremities at baseline Extremities No Clubbing, No Cyanosis, No Edema, Normal Pulses Vascular Normal Pulses Labs/Kiet Results: Laboratory Tests 11/26 11/26 11/26 1630 1029 0904 Chemistry Sodium (137 - 145 mmol/L) 140 Potassium (3.5 - 5.1 mmol/L) 4.3 Chloride (98 - 107 mmol/L) 105 Carbon Dioxide (22 - 30 mmol/L) 26 Anion Gap (5 - 16) 9 BUN (9 - 20 mg/dL) 27 H Creatinine (0.7 - 1.2 mg/dL) 0.9 Estimated GFR (>60 ml/min) > 60 BUN/Creatinine Ratio (7 - 25 %) 30.0 H Glucose (65 - 99 mg/dL) 154 H Calcium (8.4 - 10.2 mg/dL) 9.2 Magnesium (1.6 - 2.3 mg/dL) 1.8 Total Bilirubin (0.2 - 1.3 mg/dL) 0.6 AST (17 - 59 U/L) 19 ALT (21 - 72 U/L) 29 Alkaline Phosphatase (< 127 U/L) 65 Troponin I (<0.11 ng/ml) Pending < 0.01 Qtu-B-Ryehqdoikgq Pept (<125 pg/mL) 81.3 Total Protein (6.3 - 8.2 g/dL) 6.4 Albumin (3.5 - 5.0 g/dL) 3.8 Globulin (1.9 - 4.2 gm/dL) 2.6 Albumin/Globulin Ratio (1.1 - 2.2 %) 1.5 TSH &T3 &Free T4 Intrp (0.27 - 4.20 uIU/mL) 2.730 Coagulation PT (9.4 - 12.5 SEC) 11.4 INR (0.90 - 1.17) 1.09 APTT (25 - 37 SEC) 31 D-Dimer High Sensitivty (0 - 243 ng/ml) 410 H Hematology CBC w Diff NO MAN DIFF REQ WBC (4.8 - 10.8 /CUMM) 5.8 RBC (4.70 - 6.10 /CUMM) 4.05 L Hgb (14.0 - 18.0 G/DL) 12.7 L Hct (42 - 52 %) 37.6 L MCV (80.0 - 94.0 FL) 92.7 MCH (27.0 - 31.0 PG) 31.2 H RDW (11.5 - 14.5 %) 12.9 Plt Count (130 - 400 /CUMM) 136 MPV (7.4 - 10.4 FL) 7.4 Gran % (42.2 - 75.2 %) 73.4 Lymphocytes % (20.5 - 51.1 %) 17.7 L Monocytes % (1.7 - 9.3 %) 8.2 Eosinophils % (0 - 5 %) 0.4 Basophils % (0.0 - 2.0 %) 0.3 Absolute Granulocytes (1.4 - 6.5 /CUMM) 4.3 Absolute Lymphocytes (1.2 - 3.4 /CUMM) 1.0 L Absolute Monocytes (0.10 - 0.60 /CUMM) 0.5 Absolute Eosinophils (0.0 - 0.7 /CUMM) 0 Absolute Basophils (0.0 - 0.2 /CUMM) 0 PUBS MCHC (33.0 - 37.0 G/DL) 33.7 11/26 0901 Chemistry Vvx-U-Fvibbypsemo Pept Cancelled Diagnostic Data EKG Results NSR wtih non specific STT changes. Other Results CTA chest: IMPRESSION: 1. Multiple respiratory motion artifact somewhat limits evaluation. Isolated filling defect in the right lower lobe superior segment pulmonary arterial branch is concerning for pulmonary embolism. No acute intrathoracic abnormality noted otherwise. 2. Hyperdense sludge versus vicarious excretion of contrast in the gallbladder. Assessment/Plan Assessment/Plan Assessment : 1. Possible right LL pulmonary embolism 2. Tachycardia with non specific ECG changes 3. History of Mitral insufficiency 4. Mental retardation 5. DM 6. History of asthma 7. Mild anemia Recommendations: - For now continue as outlined by the medical team - Echocardiogram to assess MR severity and RVsystolic pressure. - Keep on telemetry for 24 hours and reassess at that time for telemetry necessity. Consult Acknowledgment - Thank you for your consult request.
--- NOTE | 2016-11-26 16:56 | NUR ---
PT TRANSPORTED TO FLOOR
[2016-11-26 17:28] VITALS: BP 120/76
--- NOTE | 2016-11-26 19:34 | Admission Certification ---
Admission Certification Certification Statement - As attending physician, I certify that at the time of - admission, based on clinical presentation, severity of - symptoms, need for further diagnostic testing and - therapeutic interventions, and risk of adverse outcomes - without in-hospital treatment, in my clinical assessment, - this patient requires an acute hospital stay for a minimum - of two nights or longer. I have also considered psychsocial - factors such as support system, advanced age, financial - issues, cognitive issues, and failed out-patient treatments, - past re-admission history, safety of patient, and lack of - compliance as applicable. Specific rationale supporting this admission is: Pulm emboli
[2016-11-26 21:32] LABS: PTT > 120 SEC (25-37)
[2016-11-26 22:49] VITALS: BP 122/70
[2016-11-27 06:02] LABS: PTT 97 SEC (25-37)
[2016-11-27 07:59] VITALS: BP 120/80
--- NOTE | 2016-11-27 11:14 | PN- Att Addend ---
Attending Addendum Attending Brief Note Events of the last 2 days noted, appreciate Dr. Sierra's input and recommendations. Patient is resting in bed vital signs stable good O2 saturation no major changes on physical. We'll check his echocardiogram, to assess his cardiac function, if necessary will get a cardiology consult. For now continue treatment as per pulmonary's recommendations. 24 TOTALS 11/27 0000 11/26 0000 Intake Total 1000 Output Total Balance 1000 Intake, IV 1000 Patient 160 lb Weight Weight Reported by Patient Measurement Method Current Medications Sig/Flavio Start time Last Medication Dose Route Stop Time Status Admin Acetaminophen 325 MG Q6P PRN 11/26 1345 AC 11/26 PO 2238 Acetaminophen 1,000 MG Q6P PRN 11/26 1345 AC IV Benztropine Mesylate 0.5 MG BID 11/26 2200 AC 11/27 PO 0835 Guaifenesin 10 ML Q6P PRN 11/26 1400 AC PO Haloperidol 5 MG TID 11/26 1600 AC 11/27 PO 0835 Heparin Sodium 0 .STK-MED ONE 11/26 1323 DC (Porcine) .ROUTE Heparin Sodium 5,000 UNIT ONCE ONE 11/26 1315 DC 11/26 (Porcine) IV 11/26 1316 1345 Heparin Sodium 25,000 UNIT Q24H 11/26 1315 AC 11/26 (Porcine) IV 1352 Sodium Chloride 500 ML Insulin Aspart 0 TIDAC 11/26 1700 AC 11/27 SC 0836 Lisinopril 2.5 MG DAILY 11/27 1000 AC 11/27 PO 0838 Midazolam HCl 2 MG ONCE ONE 11/26 1145 DC IV 11/26 1146 Midazolam HCl 5 MG ONCE ONE 11/26 1130 CAN IV 11/26 1131 Morphine Sulfate 1 MG Q4P PRN 11/26 1345 AC IV Terbinafine HCl 1 GWEN TID 11/26 1630 AC 11/26 TOP 1846 Ziprasidone 80 MG BID 11/26 2200 AC 11/27 PO 0835 Laboratory Tests 11/27/16 0515: APTT 97 H 11/26/16 2239: Troponin I < 0.01 11/26/16 2000: APTT > 120 *H 11/26/16 1630: Troponin I < 0.01 11/26/16 1029: PT 11.4, INR 1.09, APTT 31, D-Dimer High Sensitivty 410 H 11/26/16 0904: Anion Gap 9, Estimated GFR > 60, BUN/Creatinine Ratio 30.0 H, Glucose 154 H, Calcium 9.2, Magnesium 1.8, Total Bilirubin 0.6, AST 19, ALT 29, Alkaline Phosphatase 65, Troponin I < 0.01, Mwv-T-Pesxfcpzbcm Pept 81.3, Total Protein 6.4, Albumin 3.8, Globulin 2.6, Albumin/Globulin Ratio 1.5, TSH &T3 &Free T4 Intrp 2.730, CBC w Diff NO MAN DIFF REQ, RBC 4.05 L, MCV 92.7, MCH 31.2 H, RDW 12.9, MPV 7.4, Gran % 73.4, Lymphocytes % 17.7 L, Monocytes % 8.2, Eosinophils % 0.4, Basophils % 0.3, Absolute Granulocytes 4.3, Absolute Lymphocytes 1.0 L, Absolute Monocytes 0.5, Absolute Eosinophils 0, Absolute Basophils 0, PUBS MCHC 33.7 11/26/16 0901: Kmj-Z-Iytlohmxxtr Pept Cancelled Vital Signs Date Time Temp Pulse Resp B/P B/P Pulse O2 O2 Flow FiO2 Mean Ox Delivery Rate 11/27 0838 98 105/56 11/27 0759 98.2 77 18 120/80 98 Room Air Room Air 11/26 2249 98.6 69 18 122/70 96 Room Air 11/26 2238 4.0 11/26 1728 97.5 87 18 120/76 98 Room Air 11/26 1635 96.1 94 20 134/84 91 Room Air 11/26 1348 96.9 94 18 119/76 98 Room Air 11/26 1200 96.0 96 18 146/67 100 Room Air
--- NOTE | 2016-11-27 13:30 | PN- Pulmonary ---
Subjective HPI/Critical Care Issues: Still agitated No sig tachy today Objective Current Medications: Current Medications Sig/Flavio Start time Last Medication Dose Route Stop Time Status Admin Acetaminophen 325 MG Q6P PRN 11/26 1345 AC 11/26 PO 2238 Acetaminophen 1,000 MG Q6P PRN 11/26 1345 AC IV Benztropine Mesylate 0.5 MG BID 11/26 2200 AC 11/27 PO 0835 Guaifenesin 10 ML Q6P PRN 11/26 1400 AC PO Haloperidol 5 MG TID 11/26 1600 AC 11/27 PO 0835 Heparin Sodium 25,000 UNIT Q24H 11/26 1315 AC 11/26 (Porcine) IV 1352 Sodium Chloride 500 ML Insulin Aspart 0 TIDAC 11/26 1700 AC 11/27 SC 0836 Lisinopril 2.5 MG DAILY 11/27 1000 AC 11/27 PO 0838 Morphine Sulfate 1 MG Q4P PRN 11/26 1345 AC IV Terbinafine HCl 1 GWEN TID 11/26 1630 AC 11/26 TOP 1846 Ziprasidone 80 MG BID 11/26 2200 AC 11/27 PO 0835 Laboratory Tests 11/27 11/26 11/26 11/26 11/26 0515 2239 2000 1630 1029 Chemistry Troponin I (<0.11 ng/ml) < 0.01 < 0.01 Coagulation PT (9.4 - 12.5 SEC) 11.4 INR (0.90 - 1.17) 1.09 APTT (25 - 37 SEC) 97 H > 120 *H 31 D-Dimer High Sensitivty (0 - 243 ng/ml) 410 H 11/26 11/26 0904 0901 Chemistry Sodium (137 - 145 mmol/L) 140 Potassium (3.5 - 5.1 mmol/L) 4.3 Chloride (98 - 107 mmol/L) 105 Carbon Dioxide (22 - 30 mmol/L) 26 Anion Gap (5 - 16) 9 BUN (9 - 20 mg/dL) 27 H Creatinine (0.7 - 1.2 mg/dL) 0.9 Estimated GFR (>60 ml/min) > 60 BUN/Creatinine Ratio (7 - 25 %) 30.0 H Glucose (65 - 99 mg/dL) 154 H Calcium (8.4 - 10.2 mg/dL) 9.2 Magnesium (1.6 - 2.3 mg/dL) 1.8 Total Bilirubin (0.2 - 1.3 mg/dL) 0.6 AST (17 - 59 U/L) 19 ALT (21 - 72 U/L) 29 Alkaline Phosphatase (< 127 U/L) 65 Troponin I (<0.11 ng/ml) < 0.01 [id number] Pept (<125 pg/mL) 81.3 Cancelled Total Protein (6.3 - 8.2 g/dL) 6.4 Albumin (3.5 - 5.0 g/dL) 3.8 Globulin (1.9 - 4.2 gm/dL) 2.6 Albumin/Globulin Ratio (1.1 - 2.2 %) 1.5 TSH &T3 &Free T4 Intrp (0.27 - 4.20 uIU/mL) 2.730 Hematology CBC w Diff NO MAN DIFF REQ WBC (4.8 - 10.8 /CUMM) 5.8 RBC (4.70 - 6.10 /CUMM) 4.05 L Hgb (14.0 - 18.0 G/DL) 12.7 L Hct (42 - 52 %) 37.6 L MCV (80.0 - 94.0 FL) 92.7 MCH (27.0 - 31.0 PG) 31.2 H RDW (11.5 - 14.5 %) 12.9 Plt Count (130 - 400 /CUMM) 136 MPV (7.4 - 10.4 FL) 7.4 Gran % (42.2 - 75.2 %) 73.4 Lymphocytes % (20.5 - 51.1 %) 17.7 L Monocytes % (1.7 - 9.3 %) 8.2 Eosinophils % (0 - 5 %) 0.4 Basophils % (0.0 - 2.0 %) 0.3 Absolute Granulocytes (1.4 - 6.5 /CUMM) 4.3 Absolute Lymphocytes (1.2 - 3.4 /CUMM) 1.0 L Absolute Monocytes (0.10 - 0.60 /CUMM) 0.5 Absolute Eosinophils (0.0 - 0.7 /CUMM) 0 Absolute Basophils (0.0 - 0.2 /CUMM) 0 PUBS MCHC (33.0 - 37.0 G/DL) 33.7 Vital Signs & I&O Last 24 Hrs of Vitals and I&O: Vital Signs Date Time Temp Pulse Resp B/P B/P Pulse O2 O2 Flow FiO2 Mean Ox Delivery Rate 11/27 0838 98 105/56 11/27 0759 98.2 77 18 120/80 98 Room Air Room Air 11/26 2249 98.6 69 18 122/70 96 Room Air 11/26 2238 4.0 11/26 1728 97.5 87 18 120/76 98 Room Air 11/26 1635 96.1 94 20 134/84 91 Room Air 11/26 1348 96.9 94 18 119/76 98 Room Air Intake & Output 11/27 1600 11/27 0800 11/27 0000 Intake Total 760.8 Output Total 800 Balance -39.2 Intake, IV 160.8 Intake, Oral 600 Output, Urine 800 Patient 160 lb Weight Impression/Plan Impression/Plan Impression/Plan: General Appearance Alert, Cooperative, No Acute Distress, not oriented to time, place, person Skin No Rashes, No Breakdown, 2 christiano noted on the left side of the head Skin Temp/Moisture Exam: Warm/Dry Sepsis Skin Exam (color): Normal for Ethnicity HEENT Atraumatic, PERRLA, EOMI, mucous membranes dry Neck Supple, No JVD Lymphatic Cervical nl Cardiovascular Regular Rate, Normal S1, Normal S2, 2/6 systolic murmur Lungs Clear to Auscultation, Normal Air Movement Abdomen Normal Bowel Sounds, Soft, No Tenderness Neurological Normal Tone, Reflexes 2+, difficult exam due to mental retardation, 4/5 all extremities at baseline Extremities No Clubbing, No Cyanosis, No Edema, Normal Pulses IMPRESSION Pt with multiple issues including mental retardation with * Found to have inidental segmental abnormality prob old pe not clinically sig * Previous low ef with sig cardiomyopathy * GB abnormality * Sig Mental retardation * Valvular heart disease With MR * On meds for htn, agitation and dm * DM appears stable * Recent [facility] * History of asthma REC Pt should be treated only for 3 months as the pe he has does not appear sig (if he indeed have PE) DC heparin and Start xeralto 15 bid for three weeks followed by xeralto 20 mg qd for 9 weeks duration and dc ECHO cardio to see for low ef, and valvular heart Follow ekg for qtc TEle monitoring Follow RV pressures Will follow
[2016-11-27 14:34] VITALS: BP 110/72
--- NOTE | 2016-11-27 14:40 | PN- Cardiology ---
Subjective Subjective: Clinically, the patient appears about the same. No evidence of shortness of breath, tachycardia or hypoxia. Echocardiogram pending. The patient remains intermittently agitated. Objective Vital Signs and I&Os Vital Signs Date Time Temp Pulse Resp B/P B/P Pulse O2 O2 Flow FiO2 Mean Ox Delivery Rate 11/27 1434 97.6 90 18 110/72 96 Room Air 11/27 0838 98 105/56 11/27 0759 98.2 77 18 120/80 98 Room Air Room Air 11/26 2249 98.6 69 18 122/70 96 Room Air 11/26 2238 4.0 11/26 1728 97.5 87 18 120/76 98 Room Air 11/26 1635 96.1 94 20 134/84 91 Room Air Intake & Output 11/27 1600 11/27 0800 11/27 0000 11/26 1600 11/26 0800 11/26 0000 Intake Total 760.8 1000 Output Total 800 Balance -39.2 1000 Intake, IV 160.8 1000 Intake, Oral 600 Output, Urine 800 Patient 160 lb 160 lb Weight Weight Reported by Patient Measurement Method Physical Exam: General Appearance Alert, Cooperative, not oriented, intermittent agitation noted Skin normal HEENT Atraumatic, PERRLA, EOMI, mucous membranes dry Neck Supple, No JVD, carotid shows normal bilaterally Lymphatic Cervical nl Cardiovascular Regular Rate, Normal S1, Normal S2, 2/6 systolic murmur Lungs Clear to Auscultation and percussion bilaterally Abdomen Normal Neurological no gross focal abnormalities Extremities No Clubbing, No Cyanosis, No Edema, Normal Pulses Vascular Normal Pulses Current Medications: Current Medications Sig/Flavio Start time Last Medication Dose Route Stop Time Status Admin Acetaminophen 325 MG Q6P PRN 11/26 1345 AC 11/26 PO 2238 Acetaminophen 1,000 MG Q6P PRN 11/26 1345 AC IV Benztropine Mesylate 0.5 MG BID 11/26 2200 AC 11/27 PO 0835 Guaifenesin 10 ML Q6P PRN 11/26 1400 AC PO Haloperidol 5 MG TID 11/26 1600 AC 11/27 PO 0835 Heparin Sodium 25,000 UNIT Q24H 11/26 1315 AC 11/26 (Porcine) IV 1352 Sodium Chloride 500 ML Insulin Aspart 0 TIDAC 11/26 1700 AC 11/27 SC 0836 Lisinopril 2.5 MG DAILY 11/27 1000 AC 11/27 PO 0838 Morphine Sulfate 1 MG Q4P PRN 11/26 1345 AC IV Terbinafine HCl 1 GWEN TID 11/26 1630 11/26 TOP 1846 Ziprasidone 80 MG BID 11/26 2200 11/27 PO 0835 Results Last 48 Hrs of Labs/Mics: Laboratory Tests 11/27/16 1410: APTT Pending 11/27/16 0515: APTT 97 H 11/26/16 2239: Troponin I < 0.01 11/26/16 2000: APTT > 120 *H 11/26/16 1630: Troponin I < 0.01 11/26/16 1029: PT 11.4, INR 1.09, APTT 31, D-Dimer High Sensitivty 410 H 11/26/16 0904: Anion Gap 9, Estimated GFR > 60, BUN/Creatinine Ratio 30.0 H, Glucose 154 H, Calcium 9.2, Magnesium 1.8, Total Bilirubin 0.6, AST 19, ALT 29, Alkaline Phosphatase 65, Troponin I < 0.01, Yli-M-Abjsewialum Pept 81.3, Total Protein 6.4, Albumin 3.8, Globulin 2.6, Albumin/Globulin Ratio 1.5, TSH &T3 &Free T4 Intrp 2.730, CBC w Diff NO MAN DIFF REQ, RBC 4.05 L, MCV 92.7, MCH 31.2 H, RDW 12.9, MPV 7.4, Gran % 73.4, Lymphocytes % 17.7 L, Monocytes % 8.2, Eosinophils % 0.4, Basophils % 0.3, Absolute Granulocytes 4.3, Absolute Lymphocytes 1.0 L, Absolute Monocytes 0.5, Absolute Eosinophils 0, Absolute Basophils 0, PUBS MCHC 33.7 11/26/16 0901: Bwj-B-Fjikbutysqz Pept Cancelled Assessment/Plan Assessment/Plan Assessment : 1. Possible right LL pulmonary embolism 2. Tachycardia with non specific ECG changes 3. History of Mitral insufficiency 4. Mental retardation 5. DM 6. History of asthma 7. Mild anemia Recommendations: -Echocardiogram pending -Continue anticoagulation as per Dr. Sierra with transition to oral anticoagulant as planned -Keep the patient on gambling monitor another 24 hours -At that time, depending on the echocardiogram results and the telemetry monitoring results, we could consider taking the patient off of the gambling monitor. Continue telemetry? Yes
[2016-11-27 15:22] LABS: PTT 54 SEC (25-37)
[2016-11-27 22:15] VITALS: BP 114/60
[2016-11-28 07:14] VITALS: BP 126/82
--- NOTE | 2016-11-28 08:32 | PN- Housestaff ---
Subjective Follow-up For: #1 PE #2 tachycardia #3 hypertension Complaints: no complaints Tele-Events Since Last Visit: NSR: [id number] Subjective: I have personally examined the patient at bedside, he was sitting comfortably in chair in has no complaints Review of Systems Constitutional: Denies: see HPI. Cardiovascular: Denies: see HPI. Respiratory: Denies: cough, orthopnea, short of breath. Gastrointestinal: Denies: constipation, diarrhea, vomiting. Objective Last 24 Hrs of Vital Signs/I&O Vital Signs Date Time Temp Pulse Resp B/P B/P Pulse O2 O2 Flow FiO2 Mean Ox Delivery Rate 11/28 1015 112 110/72 11/28 0714 98.3 74 20 126/82 97 11/27 2215 98.9 86 20 114/60 97 Room Air 11/27 1434 97.6 90 18 110/72 96 Room Air Intake & Output 11/28 1600 11/28 0800 11/28 0000 Intake Total 360 810 Output Total 800 Balance 360 10 Intake, IV 0 0 Intake, Oral 360 810 Number 0 0 Bowel Movements Output, Urine 800 Physical Exam General Appearance: Alert, Oriented X3, Cooperative, No Acute Distress Skin: No Rashes, No Breakdown, No Significant Lesion HEENT: Atraumatic, PERRLA, EOMI, Mucous Membr. moist/pink Neck: Supple, No JVD Cardiovascular: Regular Rate, Normal S1, Normal S2, No Murmurs Lungs: Clear to Auscultation, Normal Air Movement Abdomen: Normal Bowel Sounds, Soft, No Tenderness Neurological: Normal Speech, Strength at 5/5 X4 Ext, Normal Tone Extremities: No Edema Assessment/Plan Assessment: 51-year-old man with past medical history of mental retardation residing in a pen[facility]iary in [place], non-insulin dependent diabetes, asthma was brought into the ED this morning ambulance from his [facility] for the evaluation of tachycardia. vitals on admission : Temperature 96.7, pulse 104, respiration 18, blood pressure 101/67, saturating 98% on room air. Labs on admission were significant for H&H of 12.7/ 37.6, negative troponins, elevated proBNP of 410. EKG shows sinus tachycardia with a heart rate of 104, QTC 453, no ST-T wave changes, no signs of right heart strain. Last echo was 2007 which showed global hypokinesia with EF of 30-35%, moderate mitral insufficiency, right heart pressure of 50 Last echo was 2007 which showed global hypokinesia with EF of 30-35%, moderate mitral insufficiency, right heart pressure of 50mm hg CTA:1. Multiple respiratory motion artifact somewhat limits evaluation. Isolated filling defect in the right lower lobe superior segment pulmonary arterial branch is concerning for pulmonary embolism. No acute intrathoracic abnormality noted otherwise. 2. Hyperdense sludge versus vicarious excretion of contrast in the gallbladder. #PE: -Found to have inidental segmental abnormality prob old pe not clinically sig. -Pt should be treated only for 3 months as the pe he has does not appear sig (if he indeed have PE) as per Dr Sierra, recommendation Continue xeralto 15 bid for three weeks followed by xeralto 20 mg qd for 9 weeks duration and dc ECHO pending cardio to see for low ef, and valvular heart Follow ekg for qtc Continue TEle monitoring Follow RV pressures #Tachycardia: Gen. to monitor on telemetry 3 sets of troponin and EKG ruled out ACS Echocardiogram pending Cardiology Dr. Griffiths on board #Diabetes mellitus: Accu-Cheks 3 times a day NovoLog sliding scale Diabetic diet #Hypertension Continue home meds of lisinopril DVT prophylaxis: Pharmacological Diet: Diabetic diet Code: Full code Problem List: 1. Pulmonary emboli 2. Tachycardia 3. Fall 4. Laceration Pain Ratin Pain Location: N/a Pain Goal: Remain pain free Pain Plan: Tylenol Oxycodone Tomorrow's Labs & Rationales: n/a DVT/Prophylaxis: pharmacological
--- NOTE | 2016-11-28 12:37 | PN- Att Addend ---
Attending Addendum Attending Brief Note Patient looking and feeling better sitting in the chair my brother visiting also has a sitter side of the room air and vital signs are stable his O2 saturation is adequate with no major changes on physical to continue present treatment as per pulmonary. Intake & Output 11/28 1600 11/28 0400 11/27 1600 11/27 0400 11/26 1600 11/26 0400 Intake Total 965 925 1469.4 1000 Output Total 800 1150 Balance 360 10 648.4 1000 Intake, IV 0 0 298.4 1000 Intake, Oral 504 532 9135 Number 0 0 Bowel Movements Output, Urine 800 1150 Patient 160 lb 160 lb Weight Weight Reported by Patient Measurement Method Current Medications Sig/Flavio Start time Last Medication Dose Route Stop Time Status Admin Acetaminophen 325 MG Q6P PRN 11/26 1345 AC 11/26 PO 2238 Acetaminophen 1,000 MG Q6P PRN 11/26 1345 AC IV Benztropine Mesylate 0.5 MG BID 11/26 2200 AC 11/28 PO 1014 Guaifenesin 10 ML Q6P PRN 11/26 1400 AC PO Haloperidol 5 MG TID 11/26 1600 AC 11/28 PO 1014 Heparin Sodium 25,000 UNIT Q24H 11/26 1315 DC 11/26 (Porcine) IV 1352 Sodium Chloride 500 ML Insulin Aspart 0 TIDAC 11/26 1700 AC 11/28 SC 1156 Lisinopril 2.5 MG DAILY 11/27 1000 AC 11/28 PO 1015 Morphine Sulfate 1 MG Q4P PRN 11/26 1345 AC IV Rivaroxaban 15 MG 0600,1800 11/28 0600 AC 11/28 PO 12/18 2300 0550 Rivaroxaban 15 MG BID 11/27 1438 DC 11/27 PO 12/18 2300 1719 Terbinafine HCl 1 GWEN TID 11/26 1630 AC 11/28 TOP 1017 Ziprasidone 80 MG BID 11/26 2200 AC 11/28 PO 1016 Laboratory Tests 11/27/16 1410: APTT 54 H 11/27/16 0515: APTT 97 H 11/26/16 2239: Troponin I < 0.01 11/26/16 2000: APTT > 120 *H 11/26/16 1630: Troponin I < 0.01 11/26/16 1029: PT 11.4, INR 1.09, APTT 31, D-Dimer High Sensitivty 410 H 11/26/16 0904: Anion Gap 9, Estimated GFR > 60, BUN/Creatinine Ratio 30.0 H, Glucose 154 H, Calcium 9.2, Magnesium 1.8, Total Bilirubin 0.6, AST 19, ALT 29, Alkaline Phosphatase 65, Troponin I < 0.01, Amj-F-Scxwkbgcfbn Pept 81.3, Total Protein 6.4, Albumin 3.8, Globulin 2.6, Albumin/Globulin Ratio 1.5, TSH &T3 &Free T4 Intrp 2.730, CBC w Diff NO MAN DIFF REQ, RBC 4.05 L, MCV 92.7, MCH 31.2 H, RDW 12.9, MPV 7.4, Gran % 73.4, Lymphocytes % 17.7 L, Monocytes % 8.2, Eosinophils % 0.4, Basophils % 0.3, Absolute Granulocytes 4.3, Absolute Lymphocytes 1.0 L, Absolute Monocytes 0.5, Absolute Eosinophils 0, Absolute Basophils 0, PUBS MCHC 33.7 11/26/16 0901: Qzb-O-Njxsbifdqbn Pept Cancelled Vital Signs Date Time Temp Pulse Resp B/P B/P Pulse O2 O2 Flow FiO2 Mean Ox Delivery Rate 11/28 1015 112 110/72 11/28 0714 98.3 74 20 126/82 97 11/27 2215 98.9 86 20 114/60 97 Room Air 11/27 1434 97.6 90 18 110/72 96 Room Air
--- NOTE | 2016-11-28 14:33 | PN- Cardiology ---
Subjective Subjective: * No discernable complaints. * sinus rhythm Objective Vital Signs and I&Os Vital Signs Date Time Temp Pulse Resp B/P B/P Pulse O2 O2 Flow FiO2 Mean Ox Delivery Rate 11/28 1015 112 110/72 11/28 0714 98.3 74 20 126/82 97 11/27 2215 98.9 86 20 114/60 97 Room Air 11/27 1434 97.6 90 18 110/72 96 Room Air Intake & Output 11/28 1600 11/28 0800 11/28 0000 11/27 1600 11/27 0800 11/27 0000 Intake Total 730 895 281 6828.6 760.8 Output Total 800 350 800 Balance 730 360 10 687.6 -39.2 Intake, IV 10 0 0 137.6 160.8 Intake, Oral 720 360 810 900 600 Number 0 0 Bowel Movements Output, Urine 800 350 800 Patient 160 lb Weight Physical Exam: General: WD/WN male in NAD; awake and responsive Neck: no JVD Heart: RRR Lungs: clear Extr: no edema Assessment/Plan Assessment/Plan * Continue to anticoagulate with Xarelto. The dose is 15mg BID for 21 days and then 20mg for the duration of treatment. Continue telemetry? Yes
[2016-11-28 15:19] VITALS: BP 112/60
[2016-11-28 22:10] VITALS: BP 112/60
[2016-11-29 06:46] VITALS: BP 110/70
[2016-11-29 14:54] VITALS: BP 124/64
--- NOTE | 2016-11-29 15:34 | PN- Att Addend ---
Attending Addendum Attending Brief Note Patient comfortable in bed, he is not agitated, still has the monitor outside of the room. Appreciate cardiology subpulmonary input and recommendations patient on the [place] anticoagulation now, if stable in a.m. start disposition plans back to his halfway, and monitor, also follow anticoagulation recommendations per consultants Intake & Output 11/29 1600 11/29 0400 11/28 1600 11/28 0400 11/27 1600 11/27 0400 Intake Total 742 296 8585 810 1798.4 Output Total 800 1150 Balance 795 404 8488 10 648.4 Intake, IV 10 10 0 298.4 Intake, Oral 259 258 3196 810 1500 Number 0 0 Bowel Movements Output, Urine 800 1150 Patient 160 lb Weight Current Medications Sig/Flavio Start time Last Medication Dose Route Stop Time Status Admin Acetaminophen 325 MG Q6P PRN 11/26 1345 AC 11/26 PO 2238 Acetaminophen 1,000 MG Q6P PRN 11/26 1345 AC IV Benztropine Mesylate 0.5 MG BID 11/26 2200 AC 11/29 PO 0940 Guaifenesin 10 ML Q6P PRN 11/26 1400 AC PO Haloperidol 5 MG TID 11/26 1600 AC 11/29 PO 0940 Insulin Aspart 0 TIDAC 11/26 1700 AC 11/29 SC 1214 Lisinopril 2.5 MG DAILY 11/27 1000 AC 11/29 PO 0940 Morphine Sulfate 1 MG Q4P PRN 11/26 1345 AC IV Rivaroxaban 15 MG 0600,1800 11/28 0600 AC 11/29 PO 12/18 2300 0507 Terbinafine HCl 1 GWEN TID 11/26 1630 AC 11/28 TOP 2144 Ziprasidone 80 MG BID 11/26 2200 AC 11/29 PO 0940 Laboratory Tests 11/27/16 1410: APTT 54 H 11/27/16 0515: APTT 97 H 11/26/16 2239: Troponin I < 0.01 11/26/16 2000: APTT > 120 *H 11/26/16 1630: Troponin I < 0.01 Vital Signs Date Time Temp Pulse Resp B/P B/P Pulse O2 O2 Flow FiO2 Mean Ox Delivery Rate 11/29 1454 97.8 76 16 124/64 97 Room Air 11/29 0940 75 110/70 11/29 0646 98.2 75 20 110/70 99 Room Air 11/28 2209 98.1 76 20 112/60 100 11/289 Room Air
--- NOTE | 2016-11-29 19:50 | PN- Housestaff ---
Subjective Follow-up For: #1 PE #2 tachycardia #3 hypertension Complaints: no complaints Tele-Events Since Last Visit: Patient was in sinus rhythm 62-80 no events Subjective: Patient was seen and examined bedside. He was laying in bed and had no complaints Review of Systems Constitutional: Reports: no symptoms, see HPI. Objective Last 24 Hrs of Vital Signs/I&O Vital Signs Date Time Temp Pulse Resp B/P B/P Pulse O2 O2 Flow FiO2 Mean Ox Delivery Rate 11/29 1454 97.8 76 16 124/64 97 Room Air 11/29 0940 75 110/70 11/29 0646 98.2 75 20 110/70 99 Room Air 11/28 2210 98.1 76 20 112/60 100 11/28 2149 Room Air Intake & Output 11/29 1600 11/29 0800 11/29 0000 Intake Total 610 320 540 Output Total Balance 610 320 540 Intake, IV 10 Intake, Oral 600 320 540 Physical Exam General Appearance: Alert, Oriented X3, Cooperative, No Acute Distress Skin Temp/Moisture Exam: Warm/Dry Sepsis Skin Exam (color): Normal for Ethnicity HEENT: Atraumatic, PERRLA, EOMI, Mucous Membr. moist/pink Neck: Supple Cardiovascular: Regular Rate, Normal S1, Normal S2, No Murmurs, Gallops, Rubs Lungs: Clear to Auscultation, Normal Air Movement Abdomen: Normal Bowel Sounds, Soft, No Tenderness, No Hepatospenomegaly, No Masses Neurological: Normal Speech Extremities: No Clubbing, No Cyanosis, No Edema Sepsis Peripheral Pulse Location: Radial Sepsis Peripheral Pulse Exam: Normal Current Medications: Current Medications Sig/Flavio Start time Last Medication Dose Route Stop Time Status Admin Acetaminophen 325 MG Q6P PRN 11/26 1345 AC 11/26 PO 2238 Acetaminophen 1,000 MG Q6P PRN 11/26 1345 AC IV Benztropine Mesylate 0.5 MG BID 11/26 2200 AC 11/29 PO 0940 Guaifenesin 10 ML Q6P PRN 11/26 1400 AC PO Haloperidol 5 MG TID 11/26 1600 AC 11/29 PO 1752 Insulin Aspart 0 TIDAC 11/26 1700 AC 11/29 SC 1214 Lisinopril 2.5 MG DAILY 11/27 1000 AC 11/29 PO 0940 Morphine Sulfate 1 MG Q4P PRN 11/26 1345 AC IV Rivaroxaban 15 MG 0600,1800 11/28 0600 AC 11/29 PO 12/18 2300 1752 Terbinafine HCl 1 GWEN TID 11/26 1630 AC 11/28 TOP 2144 Ziprasidone 80 MG BID 11/26 2200 AC 11/29 PO 0940 Assessment/Plan Assessment: 51-year-old man with past medical history of mental retardation residing in a prison in [place], non-insulin dependent diabetes, asthma was brought into the ED this morning ambulance from his prison for the evaluation of tachycardia. vitals on admission : Temperature 96.7, pulse 104, respiration 18, blood pressure 101/67, saturating 98% on room air. Labs on admission were significant for H&H of 12.7/ 37.6, negative troponins, elevated proBNP of 410. EKG shows sinus tachycardia with a heart rate of 104, QTC 453, no ST-T wave changes, no signs of right heart strain. Last echo was 2007 which showed global hypokinesia with EF of 30-35%, moderate mitral insufficiency, right heart pressure of 50 Last echo was 2007 which showed global hypokinesia with EF of 30-35%, moderate mitral insufficiency, right heart pressure of 50mm hg CTA:1. Multiple respiratory motion artifact somewhat limits evaluation. Isolated filling defect in the right lower lobe superior segment pulmonary arterial branch is concerning for pulmonary embolism. No acute intrathoracic abnormality noted otherwise. 2. Hyperdense sludge versus vicarious excretion of contrast in the gallbladder. #PE: -Found to have inidental segmental abnormality prob old pe not clinically sig. -Pt should be treated only for 3 months as the pe he has does not appear sig (if he indeed have PE) as per Dr Sierra, recommendation Continue xeralto 15 bid for three weeks followed by xeralto 20 mg qd for 9 weeks duration and dc ECHO pending cardio to see for low ef, and valvular heart Follow ekg for qtc Continue TEle monitoring Follow RV pressures #Tachycardia: Gen. to monitor on telemetry 3 sets of troponin and EKG ruled out ACS Echocardiogram pending Cardiology Dr. Griffiths on board #Diabetes mellitus: Accu-Cheks 3 times a day NovoLog sliding scale Diabetic diet #Hypertension Continue home meds of lisinopril Disposition if stable in a.m. start disposition plans back to his prison, and monitor, also follow anticoagulation recommendations per consultants DVT prophylaxis: Pharmacological Diet: Diabetic diet Code: Full code Problem List: 1. Tachycardia 2. Pulmonary emboli 3. Laceration 4. Fall Pain Ratin Pain Location: None Pain Goal: Remain pain free Pain Plan: Tylenol and oxycodone Tomorrow's Labs & Rationales: none
[2016-11-29 23:08] VITALS: BP 102/60
[2016-11-30 07:00] VITALS: BP 100/60
--- NOTE | 2016-11-30 07:24 | ECHOCARDIOGRAM REPORT ---
MARTHA OSORIO Age: 51 : 1965 Gender: M Exam Date: 11/29/2016 08:52 Exam Location: [place] Ht (in): 66 Wt (lb): 160 BSA: 1.85 BP: 110 / 70 Ordering Physician: JULIANN KELLEY, Referring Physician: Sage Mcwilliams MD Technologist: Margie Antonio [facility] Room Number: 182 Indications: ACUTE PULMONARY EMBOLISM Rhythm: Sinus Technical Quality: Fair, Technically difficult study FINDINGS Left Ventricle Normal size left ventricle. No obvious regional wall motion abnormalities. Left ventricular wall thickness increased. Normal left ventricular ejection fraction estimated at 65-70%. Right Ventricle Right ventricle not well visualized, grossly normal. Right Atrium Normal right atrial size. Left Atrium Mild left atrial dilatation. Mitral Valve Mitral valve thickened. Mild mitral regurgitation. Aortic Valve Trileaflet aortic valve. Diffuse thickening (sclerosis) of the aortic valve cusps without reduced excursion. No aortic stenosis. No aortic regurgitation. Tricuspid Valve Tricuspid valve not well visualized, grossly normal. Trace to mild tricuspid regurgitation. Pulmonic Valve Pulmonic valve not well visualized, grossly normal. Trace to mild pulmonic regurgitation. Pericardium Minimal pericardial effusion (normal variant). Great Vessels Aortic root and proximal ascending aorta not well visualized, grossly normal. CONCLUSIONS 1. This was a technically difficult examination. 2. Aortic sclerosis is present with no valvular stenosis or insufficiency. 3. Mitral leaflet thickening is present with mild mitral insufficiency and mild left atrial enlargement. 4. A physiologic pericardial effusion is present 5. The left ventricular chamber size and systolic function are normal. Borderline concentric hypertrophy is present. 6. THe right heart structures were not optimally visualized but are grossly normal. Minimal to mild tricuspid and pulmonic insufficiency are present with no evidence of pulmonary hypertension. Sage Mcwilliams M.D. (Electronically Signed) Final Date: 30 November 2016 07:23 MEASUREMENTS (Male / Female) Normal Values 2D ECHO LV Diastolic Diameter PLAX 4.6 cm 4.2 - 5.9 / 3.9 - 5.3 cm LV Systolic Diameter PLAX 2.6 cm 2.1 - 4.0 cm LV Fractional Shortening PLAX 43.5 % 25 - 46 % LV Ejection Fraction 2D Teich 74.7 % IVS Diastolic Thickness 1.3 cm LVPW Diastolic Thickness 1.3 cm LV Relative Wall Thickness 0.6 RV Internal Dim ED PLAX 1.8 cm 1.9 - 3.8 cm LVOT Diameter 2.1 cm Aortic Root Diameter 3.4 cm LA Systolic Diameter LX 4.0 cm 3.0 - 4.0 / 2.7 - 3.8 cm LA Volume 32.0 cm 18 - 58 / 22 - 52 cm Ascending Aorta Diameter 3.5 cm DOPPLER AV Peak Velocity 155.0 cm/s AV Peak Gradient 9.6 mmHg AV Mean Velocity 102.0 cm/s AV Mean Gradient 5.0 mmHg AV Velocity Time Integral 26.9 cm LVOT Peak Velocity 105.0 cm/s LVOT Peak Gradient 4.4 mmHg LVOT Mean Velocity 63.1 cm/s LVOT Mean Gradient 2.0 mmHg LVOT Velocity Time Integral 17.0 cm LVOT Stroke Volume 58.9 cm AV Area Cont Eq vti 2.2 cm AV Area Cont Eq pk 2.3 cm MV Peak Velocity 159.0 cm/s MV Peak Gradient 10.1 mmHg MV Mean Velocity 81.4 cm/s MV Mean Gradient 3.0 mmHg Mitral E Point Velocity 89.3 cm/s Mitral A Point Velocity 130.0 cm/s Mitral E to A Ratio 0.7 MV PHT Velocity 84.7 cm/s MV Deceleration [place] 234.0 cm/s MV Pressure Half Time 108.6 ms MV Area PHT 2.0 cm MV Deceleration Time 248.0 ms TR Peak Velocity 216.0 cm/s TR Peak Gradient 18.7 mmHg Right Atrial Pressure 5.0 mmHg Pulmonary Artery Systolic Pressu 23.7 mmHg Right Ventricular Systolic Press 23.7 mmHg PV Peak Velocity 160.0 cm/s PV Peak Gradient 10.2 mmHg PV Mean Velocity 105.0 cm/s PV Mean Gradient 5.0 mmHg PV Velocity Time Integral 27.8 cm LV E' Lateral Velocity 13.1 cm/s Mitral E to LV E' Lateral Ratio 6.8 LV E' Septal Velocity 7.4 cm/s Mitral E to LV E' Septal Ratio 12.1
[2016-11-30 08:35] LABS: ABSOLUTE BASOPHIL COUNT 0 /CUMM (0.0-0.2); ABSOLUTE EOSINOPHIL COUNT 0.1 /CUMM (0.0-0.7); ABSOLUTE GRANULOCYTE CT 2.6 /CUMM (1.4-6.5); ABSOLUTE LYMPH COUNT 1.6 /CUMM (1.2-3.4); ABSOLUTE MONOCYTE COUNT 0.3 /CUMM (0.10-0.60); BASOPHIL % 0.2 % (0.0-2.0); EOSINOPHIL % 2.4 % (0-5); GRANULOCYTE % 56.6 % (42.2-75.2); HEMATOCRIT 33.6 % (42-52); MEAN CORPUSCULAR HGB 31.4 PG (27.0-31.0); MEAN CORPUSCULAR HGB CONC 33.7 G/DL (33.0-37.0); MEAN PLATELET VOLUME 7.9 FL (7.4-10.4); PLATELET COUNT 160 /CUMM (130-400); RBC DISTRIBUTION WIDTH 13.1 % (11.5-14.5); RED BLOOD CELL CT 3.61 /CUMM (4.70-6.10); WHITE BLOOD CELL COUNT 4.6 /CUMM (4.8-10.8)
[2016-11-30 10:20] VITALS: BP 106/68
--- NOTE | 2016-11-30 10:42 | PN- Att Addend ---
Attending Addendum Attending Brief Note No new issues patient sitting in the chair vital signs are stable, no fever. No new changes on physical. If okay with cardiology and pulmonary can start disposition plans for the patient to return to the assisted follow-up with myself cardiology and pulmonary. Current Medications Sig/Flavio Start time Last Medication Dose Route Stop Time Status Admin Acetaminophen 325 MG Q6P PRN 11/26 1345 AC 11/26 PO 2238 Acetaminophen 1,000 MG Q6P PRN 11/26 1345 AC IV Benztropine Mesylate 0.5 MG BID 11/26 2200 AC 11/30 PO 1020 Guaifenesin 10 ML Q6P PRN 11/26 1400 AC PO Haloperidol 5 MG TID 11/26 1600 AC 11/30 PO 1020 Insulin Aspart 0 TIDAC 11/26 1700 AC 11/29 SC 1214 Lisinopril 2.5 MG DAILY 11/27 1000 AC 11/30 PO 1020 Morphine Sulfate 1 MG Q4P PRN 11/26 1345 AC IV Rivaroxaban 15 MG 0600,1800 11/28 0600 AC 11/30 PO 12/18 2300 0646 Terbinafine HCl 1 GWEN TID 11/26 1630 AC 11/30 TOP 1020 Ziprasidone 80 MG BID 11/26 2200 AC 11/30 PO 1020 Laboratory Tests 11/30/16 0640: Anion Gap 9, Estimated GFR > 60, BUN/Creatinine Ratio 23.8, CBC w Diff NO MAN DIFF REQ, RBC 3.61 L, MCV 93.0, MCH 31.4 H, RDW 13.1, MPV 7.9, Gran % 56.6, Lymphocytes % 33.6, Monocytes % 7.2, Eosinophils % 2.4, Basophils % 0.2, Absolute Granulocytes 2.6, Absolute Lymphocytes 1.6, Absolute Monocytes 0.3, Absolute Eosinophils 0.1, Absolute Basophils 0, PUBS MCHC 33.7 11/27/16 1410: APTT 54 H Vital Signs Date Time Temp Pulse Resp B/P B/P Pulse O2 O2 Flow FiO2 Mean Ox Delivery Rate 11/30 1020 106/68 11/30 0700 98.8 75 20 100/60 93 Room Air 11/29 2308 98.0 75 16 102/60 97 Room Air 11/29 2225 Room Air 11/29 1454 97.8 76 16 124/64 97 Room Air
--- NOTE | 2016-11-30 10:46 | PN- Cardiology ---
Subjective Subjective: The patient's control. No complaints. No chest pain. No palpitations. No shortness of breath. No nausea or vomiting. Objective Vital Signs and I&Os Vital Signs Date Time Temp Pulse Resp B/P B/P Pulse O2 O2 Flow FiO2 Mean Ox Delivery Rate 11/30 1020 106/68 11/30 0700 98.8 75 20 100/60 93 Room Air 11/29 2308 98.0 75 16 102/60 97 Room Air 11/29 2225 Room Air 11/29 1454 97.8 76 16 124/64 97 Room Air Intake & Output 11/30 1600 11/30 0800 11/30 0000 11/29 1600 11/29 0800 11/29 0000 Intake Total 300 500 610 320 540 Output Total Balance 300 500 610 320 540 Intake, IV 10 Intake, Oral 300 500 600 320 540 Physical Exam: Gen: NAD HEENT: normal Lungs: clear to auscultation, normal resp. effort Heart: RRR, S1, S2, no murmurs Abdomen: Soft, nontender, no masses Extremities: No clubbing, cyanosis, or edema. Neuro: Alert and oriented x 3, cranial nerves intact Current Medications: Current Medications Sig/Flavio Start time Last Medication Dose Route Stop Time Status Admin Acetaminophen 325 MG Q6P PRN 11/26 1345 AC 11/26 PO 2238 Acetaminophen 1,000 MG Q6P PRN 11/26 1345 AC IV Benztropine Mesylate 0.5 MG BID 11/26 2200 AC 11/30 PO 1020 Guaifenesin 10 ML Q6P PRN 11/26 1400 AC PO Haloperidol 5 MG TID 11/26 1600 AC 11/30 PO 1020 Insulin Aspart 0 TIDAC 11/26 1700 AC 11/29 SC 1214 Lisinopril 2.5 MG DAILY 11/27 1000 AC 11/30 PO 1020 Morphine Sulfate 1 MG Q4P PRN 11/26 1345 AC IV Rivaroxaban 15 MG 0600,1800 11/28 0600 AC 11/30 PO 12/18 2300 0646 Terbinafine HCl 1 GWEN TID 11/26 1630 AC 11/30 TOP 1020 Ziprasidone 80 MG BID 11/26 2200 AC 11/30 PO 1020 Results Last 48 Hrs of Labs/Mics: Laboratory Tests 11/30/16 0640: Anion Gap 9, Estimated GFR > 60, BUN/Creatinine Ratio 23.8, CBC w Diff NO MAN DIFF REQ, RBC 3.61 L, MCV 93.0, MCH 31.4 H, RDW 13.1, MPV 7.9, Gran % 56.6, Lymphocytes % 33.6, Monocytes % 7.2, Eosinophils % 2.4, Basophils % 0.2, Absolute Granulocytes 2.6, Absolute Lymphocytes 1.6, Absolute Monocytes 0.3, Absolute Eosinophils 0.1, Absolute Basophils 0, PUBS MCHC 33.7 Recent Imaging Studies: Echocardiogram 11/30/16: 1. This was a technically difficult examination. 2. Aortic sclerosis is present with no valvular stenosis or insufficiency. 3. Mitral leaflet thickening is present with mild mitral insufficiency and mild left atrial enlargement. 4. A physiologic pericardial effusion is present 5. The left ventricular chamber size and systolic function are normal. Borderline concentric hypertrophy is present. 6. THe right heart structures were not optimally visualized but are grossly normal. Minimal to mild tricuspid and pulmonic insufficiency are present with no evidence of pulmonary hypertension. Assessment/Plan Assessment/Plan Assessment: 1. Pulmonary embolism 2. Sinus tachycardia 3. Diabetes mellitus Plan: * Continue Xarelto 15 mg by mouth twice a day followed by a 20 mg daily * Follow up with Dr. Mcwilliams in one to 2 weeks after discharge. Continue telemetry? Yes
--- NOTE | 2016-11-30 10:55 | Patient Discharge Instructions ---
Discharge Instructions General Discharge Information You were seen/treated for: 1. Pulmonary embolism 2. Sinus tachycardia Special Instructions: 1.pLEASE F/U WITH YOUR PCP WITHIN 1 WEEK OF DISCHARGE. 2. PLEASE F/U WITH SENIOR RD ENGINEER WITHIN 1 WEEK OF DISCHARGE. Diet Recommended Diet: Diabetic Activity Full Activity/No Limits: Yes ( TOLERATED) Acute Coronary Syndrome Inclusion Criteria At DC or during hospital stay patient has or had the following: ACS DIAGNOSIS No Discharge Core Measures Meds if any: Prescribed or Continued at Discharge Meds if any: NOT Prescribed or Continued at Discharge Congestive Heart Failure Inclusion Criteria At DC or during hospital stay patient has or had the following: CHF DIAGNOSIS No Discharge Core Measures Meds if any: Prescribed or Continued at Discharge Meds if any: NOT Prescribed or Continued at Discharge Cerebrovascular accident Inclusion Criteria At DC or during hospital stay patient has or had the following: CVA/TIA Diagnosis No Discharge Core Measures Meds if any: Prescribed or Continued at Discharge Meds if any: NOT Prescribed or Continued at Discharge Venous thromboembolism Inclusion Criteria VTE Diagnosis Yes VTE Type Pulmonary Embolism VTE Confirmed by (Test) CT CHEST ANGIOGRAM Discharge Core Measures - Per Current guidelines, there needs to be overlap - treatment for the first 5 days of Warfarin therapy. - If discharged on Warfarin prior to 5 days of - overlap therapy, the patient will need to be - assessed for post discharge needs including - *Post discharge parental anticoagulation - *Warfarin and/or parental anticoagulation education - *Follow up date to check INR post discharge At least 5 days overlap therapy as Inpatient No Why was Parental Med stopped Other Anticoagulant given (XARELTO) Meds if any: Prescribed or Continued at Discharge Warfarin No Note: Overlap Therapy is Warfarin and Anticoagulant Meds if any: NOT Prescribed or Continued at Discharge
[2016-11-30] MEDS ORDERED: XARELTO15 M1 PO (11:01)
[2016-11-30] MEDS ORDERED: XARELTO20 M2 PO ×3 (11:01→15:33)
--- NOTE | 2016-11-30 11:54 | Discharge Summary ---
Visit Information Visit Dates Admission Date: 11/26/16 Discharge Date: 11/30/16 Hospital Course Course Attending Physician: SUSIE BROWN,MARIBELL Ryan Primary Care Physician: KATERINA BROWN,[facility] Course: Patient is a 51-year-old man with past medical history of mental retardation residing in a chcf in [place], non-insulin dependent diabetes, asthma was brought into the ED this morning ambulance from his chcf for the evaluation of tachycardia. vitals in the ED : Temperature 96.7, pulse 104, respiration 18, blood pressure 101/67, saturating 98% on room air. Labs were significant for H&H of 12.7/ 37.6, negative troponins, elevated proBNP of 410. EKG showed sinus tachycardia with a heart rate of 104, QTC 453, no ST-T wave changes, no signs of right heart strain. Last echo was 2007 which showed global hypokinesia with EF of 30-35%, moderate mitral insufficiency, right heart pressure of 50 Chest CTA revealed pulmonary embolism and patient was started on a heparin drip. He received a dose of Versed IV prior to the test. He was also bolused 1 L of normal saline in the ED. He was treated in the hospital for: Right lower lobe pulmonary embolism and tachycardia: Patient was started on IV heparin. He was evaluated by back shoe cutter and [employer] hcm consultant. Dopplers of lower extremities did not show any evidence of DVT. Patient remained asymptomatic and tachycardia improved. ACS was ruled out with 3 sets of negative troponin and EKG. He was transitioned to oral anticoagulant Xarelto. Patient needs anticoagulation for 3 months as his PE did not appear to be significant. He will continue Xarelto 15 twice a day for 3 weeks(to 12/18/2016) and then 20 mg Xarelto daily for 3 months(till 02/19/2017). Echocardiogram showed improvement in left ventricular ejection fraction to 65-70%. No obvious wall motion abnormalities. Patient needs to follow up with his PCP as an outpatient. Diabetes mellitus: Continued on Accu-Cheks 3 times a day, NovoLog sliding scale, and a diabetic diet. Mechanical fall with left leg limp: patient had a fall a day before coming to the ED and got christiano on the left side of his head. He remained asymptomatic and is noted in the hospital. DVT prophylaxis IV heparin Full code A diabetic diet Mild/moderate pain pathway Allergies: Coded Allergies: NO KNOWN ALLERGIES (07/03/12) Disposition Summary Disposition Principal Diagnosis: . Pulmonary embolism Additional Diagnosis: Sinus tachycardia Discharge Disposition: chcf Discharge Instructions General Discharge Information Code Status: Full Code Patient's Diet: diabetic diet Patient's Activity: as tolerated Follow-Up Instructions/Appts: 1.pLEASE F/U WITH YOUR PCP WITHIN 1 WEEK OF DISCHARGE. 2. PLEASE F/U WITH RESERVATION AGENT WITHIN 1 WEEK OF DISCHARGE. Medications at Discharge Discharge Medications: Continue taking these medications: Ergocalciferol (Vitamin D2) (Vitamin D2) 50,000 UNIT CAPSULE 1 Capsule ORAL EVERY 2 WEEKS Qty = 2 Cyanocobalamin (Vitamin B-12) 1,000 MCG TABLET 1 Tablet ORAL 2 times per week Lisinopril (Lisinopril) 2.5 MG TABLET 1 Tablet ORAL DAILY Qty = 30 Ziprasidone HCl (Ziprasidone HCl) 80 MG CAPSULE 1 Capsule ORAL TWICE DAILY Qty = 60 Instructions: with food Benztropine Mesylate (Benztropine Mesylate) 0.5 MG TABLET 1 Tablet ORAL TWICE DAILY Qty = 60 Metformin HCl (Metformin HCl ER) 500 MG TAB.ER.24H 1 Tablet ORAL TWICE DAILY Qty = 60 Haloperidol (Haloperidol) 5 MG TABLET 1 Tablet ORAL TWICE DAILY Guaifenesin (Adult Wal-Tussin) 100 MG/5 ML LIQUID 10 Milliliters ORAL As Directed as needed for COUGH Acetaminophen (Pain & Fever) 325 MG TABLET 2 Tablet ORAL Q4H as needed for PAIN/FEVER>100 Bacitracin (Bacitracin) 500 UNIT/GRAM OINT...G. 1 Application On the skin TWICE DAILY as needed for MINOR CUTS/ABRASIONS Instructions: apply to affected area(s) Start taking the following new medications: Rivaroxaban (Xarelto) 20 MG TABLET 1 Tablet ORAL DAILY Qty = 60 No Refills Instructions: START FROM 12/19 TO 02/19/17 Rivaroxaban (Xarelto) 15 MG TABLET 1 Tablet ORAL TWICE DAILY Qty = 42 No Refills Instructions: CONTINUE 15 MG BID FOR 3 WEEKS(TILL 12/18/2016). AFTER THAT 20MG DAILY FOR 9 WEEKS TILL 02/19/17 AND F/U WITH RESERVATION AGENT Copies To: SUSIE BROWN,MARIBELL Ryan; Andre PATEL MD; POOJA BORGES MD
--- NOTE | 2016-11-30 12:47 | PN- Pulmonary ---
Subjective HPI/Critical Care Issues: No new issues patient sitting in the chair vital signs are stable, no fever. No new changes on physical Objective Current Medications: Current Medications Sig/Flavio Start time Last Medication Dose Route Stop Time Status Admin Acetaminophen 325 MG Q6P PRN 11/26 1345 AC 11/26 PO 2238 Acetaminophen 1,000 MG Q6P PRN 11/26 1345 AC IV Benztropine Mesylate 0.5 MG BID 11/26 2200 AC 11/30 PO 1020 Guaifenesin 10 ML Q6P PRN 11/26 1400 AC PO Haloperidol 5 MG TID 11/26 1600 AC 11/30 PO 1020 Insulin Aspart 0 TIDAC 11/26 1700 AC 11/29 SC 1214 Lisinopril 2.5 MG DAILY 11/27 1000 AC 11/30 PO 1020 Morphine Sulfate 1 MG Q4P PRN 11/26 1345 AC IV Rivaroxaban 15 MG 0600,1800 11/28 0600 AC 11/30 PO 12/18 2300 0646 Terbinafine HCl 1 GWEN TID 11/26 1630 AC 11/30 TOP 1020 Ziprasidone 80 MG BID 11/26 2200 AC 11/30 PO 1020 Vital Signs & I&O Last 24 Hrs of Vitals and I&O: Vital Signs Date Time Temp Pulse Resp B/P B/P Pulse O2 O2 Flow FiO2 Mean Ox Delivery Rate 11/30 1020 106/68 11/30 0700 98.8 75 20 100/60 93 Room Air 11/29 2308 98.0 75 16 102/60 97 Room Air 11/29 2225 Room Air 11/29 1454 97.8 76 16 124/64 97 Room Air Intake & Output 11/30 1600 11/30 0800 11/30 0000 Intake Total 300 500 Output Total Balance 300 500 Intake, Oral 300 500 Impression/Plan Impression/Plan Impression/Plan: General Appearance Alert, Cooperative, No Acute Distress, not oriented to time, place, person Skin No Rashes, No Breakdown, 2 christiano noted on the left side of the head Skin Temp/Moisture Exam: Warm/Dry Sepsis Skin Exam (color): Normal for Ethnicity HEENT Atraumatic, PERRLA, EOMI, mucous membranes dry Neck Supple, No JVD Lymphatic Cervical nl Cardiovascular Regular Rate, Normal S1, Normal S2, 2/6 systolic murmur Lungs Clear to Auscultation, Normal Air Movement Abdomen Normal Bowel Sounds, Soft, No Tenderness Neurological Normal Tone, Reflexes 2+, difficult exam due to mental retardation, 4/5 all extremities at baseline Extremities No Clubbing, No Cyanosis, No Edema, Normal Pulses IMPRESSION Pt with multiple issues including mental retardation with * Found to have inidental segmental abnormality prob old pe not clinically sig * Previous low ef with sig cardiomyopathy * GB abnormality * Sig Mental retardation * Valvular heart disease With MR * On meds for htn, agitation and dm * DM appears stable * Recent [facility] fall * History of asthma REC Pt should be treated only for 3 months as the pe he has does not appear sig (if he indeed have PE) xeralto 15 bid for three weeks followed by xeralto 20 mg qd for 9 weeks duration and dc Will follow as out pt
== END 2016-11-30 14:45 | DRG 176 ==
LOC: ERH 08:55 → 1NO 13:14 → ERHI 13:14 → 1NO 13:14 → ENRESERV 13:42 → ENTRNSPT 16:36 → EDTRNSPTSTS 16:48 → EDTRNSPT 16:48 → 1NO 17:02 → CMPTRNSPT 17:16 → 1NO 11-29 08:52 → ENPENDDIS 11-30 11:56 → 1NO 11-30 14:45
PROVIDERS: Internal Medicine; Physician Assistant Medical; Student in an Organized Health Care Education/Training Program; ADMIT Internal Medicine Pulmonary Disease
DX: I26.99 Other pulmonary embolism without acute cor pulmonale (principal); I42.9 Cardiomyopathy, unspecified; I11.0 Hypertensive heart disease with heart failure; I50.22 Chronic systolic (congestive) heart failure; E11.9 Type 2 diabetes mellitus without complications; F79 Unspecified intellectual disabilities; D64.9 Anemia, unspecified; I34.0 Nonrheumatic mitral (valve) insufficiency; J45.909 Unspecified asthma, uncomplicated; Z79.84 Long term (current) use of oral hypoglycemic drugs
CPT/HCPCS: 1NP; 36415; 82436; 93005; 93010; 93306; 93970; 96361; 96365; 96375; 96376; J1644